=== PATIENT | male | born 1965 | race Caucasian/White ===

== ENCOUNTER 2018-09-14 08:49 | Emergency (ER) | payer BC, SELFPAY ==
[2018-09-14 08:54] VITALS: BP 146/104; PULSE 86; RESP 14; TEMP 37.4; O2SAT 96
--- NOTE | 2018-09-14 09:23 | ED.GENADUL_ITS ---
Discharge Plan Disposition Patient Disposition: HOME Condition: Good Discharge Details Chief Complaint: RespSymp Clinical Impression: Cough, Bronchitis Primary Care Provider: Maria Luisa Middleton ED Provider: Rogelio Hicks Home Meds and New Rx's Prescriptions: New benzonatate [Tessalon Perles] 100 mg capsule 100 mg PO BID PRN (Reason: cough) Qty: 20 RF: 0 doxycycline hyclate 100 mg capsule 100 mg PO BID Qty: 14 RF: 0 albuterol sulfate 90 mcg/actuation HFA aerosol inhaler 1 puff IH Q6H PRN (Reason: bronchospasm) Qty: 6.7 RF: 0 No Action lisinopril 5 MG tablet 5 mg PO DAILY RF: 0 buspirone 15 MG tablet 15 mg PO BID RF: 0 tadalafil [Cialis] 5 MG tablet 5 mg PO DAILY RF: 0 hydrochlorothiazide 12.5 MG tablet 12.5 mg PO DAILY RF: 0 vitamin E 400 UNIT capsule 400 unit PO DAILY RF: 0 omega-3 fatty acids-fish oil [Fish Oil] 1 EACH capsule 1 ea PO BID RF: 0 Vitamin B3 1 tab PO DAILY RF: 0 loratadine 10 MG tablet 10 mg PO DAILY RF: 0 Discharge Instructions Instructions: Acute Bronchitis (ED), Acute Cough (ED) Additional Instructions: Please take the medication as directed. Please do not take the doxycycline for the next 48-72 hours. Only take the antibiotic if you do not no improvement of your symptoms in the next 48 hours. If you notice any worsening of your symptoms, or any new symptoms such as vomiting, diarrhea, fever, chills, shortness of breath, chest pain, numbness, weakness, or fainting , please return immediately to the emergency department for reevaluation. Please follow up with your primary care provider as soon as possible for reassessment and reevaluation. As always, it was a pleasure participating in your medical care today. Referrals: Maria Luisa Middleton [Primary Care Provider] - Discharge Data Discharge Date/Time-TO BE ENTERED AT DEPARTURE: 09/14/18 09:39 Medical Decision Making This is a pleasant 53-year-old male who presents with 4 days of cough, with productive brown sputum. Physical exam demonstrates no evidence of hypoxemia, fever, or tachycardia. No evidence of sepsis, or significant respiratory distress. Minimal crackles in the bases. Patient's risk factors for pneumonia severity are low, he is not a candidate for inpatient admission. I feel symptoms are consistent with mild to moderate bronchitis, however with mild crackles he community-acquired pneumonia certainly on the differential however less. With no other significant concerning physical exam findings and reassuring vital signs I feel that the patient be safely discharged home. We will start treatment for bronchitis with albuterol, and Tessalon Perles, and recommended 2 tablespoons of honey every 6 hours for cough suppression. However out of an abundance of precaution did recommend that the patient continue to monitor his symptoms and if he has no improvement of her symptoms, or if he develops recurrent fever, worsening of his cough, they begin taking doxycycline for potential community acquired pneumonia. We discussed red flags which to return, the importance of close PCP follow-up, and the patient understands. I have extensively reviewed the treatment plan and discharge instructions with the patient. I have addressed all patient concerns at this time. The patient was made aware of what symptoms to monitor for that would warrant a return to the emergency department. Discussed the plan with the patient, they demonstrate verbal understanding and agreement with our assessment and plan at this time. HPI General Date/Time Provider Initiated Documentation: 09/14/18 09:14 . HPI Narrative: This is a 53-year-old male with a past medical history of high cholesterol and hypertension no history of tobacco abuse, who presents today with cough for the last 4 days with mild amounts of brown productive sputum. He denies any significant fever or chills. He does admit to similar sickness going around for his coworkers. He denies any chest pain, shortness of breath, pleuritic chest pain, arm neck or shoulder pain. He denies any history of cardiac disease or significant family history of cardiac disease. He denies any nausea, vomiting or diarrhea. Denies PE risk factors such as recent long car rides, immobilization, recent surgery, prior history of DVT or PE, family history of PE or DVT, morbid obesity, exogenous estrogen and smoking, hemoptysis, history of cancer. Of note the patient states that his cough is been the most complicating component, and he has been coughing all night, this had no improvement with [id number] therapies. Related Data Home Medications Medication Instructions Recorded Confirmed buspirone 15 mg PO BID 09/30/12 09/14/18 lisinopril 5 mg PO DAILY 09/30/12 09/14/18 tadalafil [Cialis] 5 mg PO DAILY 09/30/12 09/14/18 Vitamin B3 1 tab PO DAILY 02/24/17 09/14/18 hydrochlorothiazide 12.5 mg PO DAILY 02/24/17 09/14/18 loratadine 10 mg PO DAILY 02/24/17 09/14/18 omega-3 fatty acids-fish oil [Fish 1 ea PO BID 02/24/17 09/14/18 Oil] vitamin E 400 unit PO DAILY 02/24/17 09/14/18 albuterol sulfate 1 puff IH Q6H PRN #6.7 gm 09/14/18 benzonatate [Tessalon Perles] 100 mg PO BID PRN #20 cap 09/14/18 doxycycline hyclate 100 mg PO BID #14 cap 09/14/18 Previous Rx's Medication Instructions Recorded albuterol sulfate 1 puff IH Q6H PRN #6.7 gm 09/14/18 benzonatate [Tessalon Perles] 100 mg PO BID PRN #20 cap 09/14/18 doxycycline hyclate 100 mg PO BID #14 cap 09/14/18 Allergies Allergy/AdvReac Type Severity Reaction Status Date / Time rosuvastatin [From Crestor] Allergy Intermediate Skin Rash Unverified 09/14/18 08:57 amlodipine AdvReac Intermediate angina Unverified 09/14/18 08:57 atorvastatin AdvReac Intermediate vomiting Unverified 09/14/18 08:57 morphine AdvReac Intermediate Nausea Unverified 09/14/18 08:57 codeine [Codeine] AdvReac Mild Nausea Unverified 09/14/18 08:57 General Stated Complaint: RespSymp VON: 3 Review of Systems Review of Systems All systems reviewed & are unremarkable except as noted in HPI and below PFSH Medical History Anxiety Bloody stools Diverticular disease of colon Family history of colon cancer Hearing loss Hyperlipidemia Hypertension Irritability Muscle pain Plantar fasciitis Skin rash Surgical History Colonoscopy - MAC (02/26/17) Family History Mother Colon cancer Grandfather Colon cancer Social History Smoking/Tobacco Use Status: Never Alcohol Intake: never Drug use: Never Substance use type: does not use Do you feel safe at home: Yes Do you feel safe in your relationship?: Yes Exam Narrative Exam Narrative: 1.Const: Well-nourished, Well-developed, appearing stated age 2.Eyes: PERRL, no conjunctival injection, and symmetrical lids. 3.ENT: Atraumatic external nose and ears. Moist MM. Neck: Symmetric, trachea midline, No thyromegaly. 4.CVS: +S1/S2, No murmurs or gallops. Peripheral pulses 2+ and equal in all extremities. Brisk capillary refill in all extremities. 5.RESP: Unlabored respiratory effort. Minimal crackles in the bases, otherwise clear to auscultation bilaterally. No wheezes or rhonchi 6.GI: Soft, Nontender/Nondistended, No hepatosplenomegaly. No guarding or rebound. 7.MSK: Normocephalic/Atraumatic, Extremities w/o deformity or ttp No cyanosis or clubbing, Normal movement of all extremities 8.Skin: Warm, Dry. No rashes or lesions. 9.Neuro: manufacturing planner II-XII grossly intact. Sensation grossly intact, no focal neurologic deficits. 10.Psych: (AAO) x3. Appropriate mood and affect Course Vital Signs Temperature 37.4 C 09/14/18 08:54 Pulse 86 09/14/18 08:54 Respiratory Rate 14 09/14/18 08:54 Blood Pressure 146/104 H 09/14/18 08:54 Pulse Oximetry 96 09/14/18 08:54 Temperature 37.4 C 09/14/18 08:54 Temperature Source Temporal Artery Scan 09/14/18 08:54 Pulse 86 09/14/18 08:54 Respiratory Rate 14 09/14/18 08:54 Respiratory Effort 09/14/18 09:14 Respiratory Depth Normal 09/14/18 09:14 Blood Pressure 146/104 H 09/14/18 08:54 Blood Pressure Position Sitting 09/14/18 08:54 Pulse Oximetry 96 09/14/18 08:54 Oxygen Delivery Method Room Air 09/14/18 08:54 Oxygen Flow Rate 0 09/14/18 08:54 Pain Level 6 09/14/18 08:54
[2018-09-14 09:24] VITALS: BP 134/92; PULSE 84; RESP 18; TEMP 37.2; O2SAT 97
== END 2018-09-14 09:39 | disposition home or self-care (01) ==
PROVIDERS: Emergency Provider Student in an Organized Health Care Education/Training Program; PCP Nurse Practitioner
DX: J20.9 Acute bronchitis, unspecified (principal); I10 Essential (primary) hypertension
CPT/HCPCS: 99283

== ENCOUNTER 2018-11-19 08:58 | Outpatient (CLI) | payer BC, SELFPAY ==
[2018-11-19 11:33] LABS: ALT 38 U/L (12-78); AST 21 U/L (15-37); Albumin 4.1 g/dL (3.4-5.0); Alkaline Phosphatase 41 U/L (46-116); Anion Gap 9.3 mmol/L (3-11); BUN 19 mg/dL (7-18); Bilirubin, Total 0.8 mg/dL (0.2-1.0); CO2 27.7 mmol/L (21.0-32.0); CREATININE 1.09 mg/dL (0.70-1.30); Calcium 9.3 mg/dL (8.5-10.1); Chloride 101 mmol/L (98-107); Cholesterol 192 mg/dL (50-200); Glucose 96 mg/dL (70-100); HDL Cholesterol 35 mg/dL (40-60); LDL CHOLESTEROL 129 mg/dL (<100); Potassium 4.1 mmol/L (3.5-5.1); Sodium 138 mmol/L (136-145); Triglyceride 153 mg/dL (30-150)
== END 2018-11-19 09:18 ==
PROVIDERS: PCP Nurse Practitioner; Visit Provider Nurse Practitioner
DX: E78.5 Hyperlipidemia, unspecified (principal); I10 Essential (primary) hypertension
CPT/HCPCS: 36415; 80053; 80061; 83721

== ENCOUNTER 2019-11-11 18:54 | Emergency (ER) | payer BC, SELFPAY ==
[2019-11-11 18:59] VITALS: BP 161/103; PULSE 87; RESP 18; TEMP 36.6; O2SAT 97
--- NOTE | 2019-11-11 19:05 | W.ED.GENAD ---
Discharge Plan Disposition Patient Disposition: HOME Condition: Stable Discharge Details Chief Complaint: Sorethroat Clinical Impression: Exudative pharyngitis Primary Care Provider: Maria Luisa Middleton ED Provider: Andrews Bowling Home Meds and New Rx's Prescriptions: New penicillin V potassium 500 mg tablet 500 mg PO TID 10 Days Qty: 30 RF: 0 Continued pravastatin 20 mg tablet 20 mg PO DAILY RF: 0 coenzyme Q10 [Co Q-10] 100 mg capsule 100 mg PO DAILY RF: 0 apple cider vinegar 600 mg capsule PO DAILY RF: 0 garlic 1,000 mg capsule 1,000 mg PO QPC RF: 0 arginine (L-arginine) 500 mg capsule PO RF: 0 lisinopril 5 MG tablet 5 mg PO DAILY RF: 0 buspirone 15 MG tablet 15 mg PO BID RF: 0 tadalafil [Cialis] 5 MG tablet 5 mg PO DAILY RF: 0 hydrochlorothiazide 12.5 MG tablet 12.5 mg PO DAILY RF: 0 vitamin E 400 UNIT capsule 400 unit PO DAILY RF: 0 Fish Oil 1 EACH capsule 1 ea PO BID RF: 0 Vitamin B3 1 tab PO DAILY RF: 0 albuterol sulfate 90 mcg/actuation HFA aerosol inhaler 1 puff IH Q6H PRN (Reason: bronchospasm) Qty: 6.7 RF: 0 Discharge Instructions Instructions: Pharyngitis (ED) Additional Instructions: Small, frequent sips of fluids to maintain hydration. May use Tylenol and/or ibuprofen as needed for pain. May benefit from cool drinks or a popsicle. Please take penicillin as prescribed. Return if develop a worsening sore throat, difficulty swallowing or breathing, or any other acute concern. Medical Decision Making This is a 54-year-old male who presents from home with 2 days of sore throat that is been isolated and without associated fever, cough, shortness of breath. He states he has a history of strep throat in the past. He is an otherwise healthy man. Slightly hypertensive but afebrile. He does have a known history of hypertension. His exam shows a erythematous oropharynx consistent with exudative pharyngitis. Rapid strep test was obtained and negative, however given the patient's presentation and clear exudative pharyngitis we will begin treatment with a course of penicillin pending final culture result. Patient understands plan of care. HPI General Mode of arrival: ambulatory. Date/Time Provider Initiated Documentation: 11/11/19 18:54. Limitations to Documentation: no limitations. Information obtained by: patient. History of Present Illness 54 year old M presents to the emergency department with the chief complaint of Sore throat for 2 days, described as moderate, Quality is described as dull, and is localized to the mouth. Patient reports no radiation. Patient started experiencing this day(s) and it has been constant. No relieving factors improve symptom(s), No exacerbating factors reported . Patient notes denies cough and shortness of breath. Related Data Home Medications Medication Instructions Recorded Confirmed buspirone 15 mg PO BID 09/30/12 11/11/19 lisinopril 5 mg PO DAILY 09/30/12 11/11/19 tadalafil [Cialis] 5 mg PO DAILY 09/30/12 11/11/19 Fish Oil 1 ea PO BID 02/24/17 11/11/19 Vitamin B3 1 tab PO DAILY 02/24/17 11/11/19 hydrochlorothiazide 12.5 mg PO DAILY 02/24/17 11/11/19 vitamin E 400 unit PO DAILY 02/24/17 11/11/19 albuterol sulfate 1 puff IH Q6H PRN #6.7 gm 09/14/18 11/11/19 apple cider vinegar 600 mg capsule mg PO DAILY cap 02/06/19 03/02/19 arginine (L-arginine) 500 mg mg PO 02/06/19 03/02/19 capsule coenzyme Q10 100 mg capsule 100 mg PO DAILY 02/06/19 11/11/19 garlic 1,000 mg capsule 1,000 mg PO QPC 02/06/19 11/11/19 pravastatin 20 mg tablet 20 mg PO DAILY 02/06/19 11/11/19 penicillin V potassium 500 mg PO TID 10 Days #30 tab 11/11/19 Previous Rx's Medication Instructions Recorded albuterol sulfate 1 puff IH Q6H PRN #6.7 gm 09/14/18 penicillin V potassium 500 mg PO TID 10 Days #30 tab 11/11/19 Allergies Allergy/AdvReac Type Severity Reaction Status Date / Time rosuvastatin [From Crestor] Allergy Intermediate Skin Rash Unverified 11/11/19 19:02 amlodipine AdvReac Intermediate angina Unverified 11/11/19 19:02 atorvastatin AdvReac Intermediate vomiting Unverified 11/11/19 19:02 morphine AdvReac Intermediate Nausea Unverified 11/11/19 19:02 codeine [Codeine] AdvReac Mild Nausea Unverified 11/11/19 19:02 General Stated Complaint: Sorethroat VON: 4 Review of Systems Narrative: Denies cough, shortness of breath, known sick contacts or recent travel. [facility] Medical History Anxiety Bloody stools Diverticular disease of colon Family history of colon cancer Hearing loss Hyperlipidemia Hypertension Irritability Muscle pain Plantar fasciitis Skin rash Surgical History (Updated 03/11/17 @ 09:35 by Adwoa Nunez) Colonoscopy - MAC (02/26/17) Family History Mother Colon cancer Grandfather Colon cancer Social History Smoking/Tobacco Use Status: Never Alcohol Intake: never Drug use: Never Substance use type: does not use Do you feel safe at home: Yes Do you feel safe in your relationship?: Yes Exam Narrative Exam Narrative: GEN: awake, alert, oriented 3. Pleasant, well groomed, interactive. HEAD: Normocephalic, atraumatic ENT: Mucous membranes moist, oropharynx with erythematous tonsillar pillars with overlying scant white exudate, the uvula is midline, there is no asymmetry, tympanic membranes are clear bilaterally, External ear exam unremarkable EYES: PERRL, EOMI NECK: Full ROM, no SHANTAL, no menigismus CHEST/RESP: Nontender, clear to auscultation bilateral, no wheeze/rhonchi/rales CARDIOVASCULAR: RRR, no murmur, rub axel. 2+ Rad pulse bilateral Neuro: Grossly normal neurologic exam, conversant, interactive. Psych: Speech fluent, thoughts congruent, affect normal Course Vital Signs Vital signs: Vital Signs Temperature 36.6 C 11/11/19 18:59 Pulse 87 11/11/19 18:59 Respiratory Rate 18 11/11/19 18:59 Blood Pressure 161/103 H 11/11/19 18:59 Pulse Oximetry 97 11/11/19 18:59 Temperature 36.6 C 11/11/19 18:59 Temperature Source Skin 11/11/19 18:59 Pulse 87 11/11/19 18:59 Respiratory Rate 18 11/11/19 18:59 Respiratory Effort Non-Labored 11/11/19 19:01 Blood Pressure 161/103 H 11/11/19 18:59 Blood Pressure Position Sitting 11/11/19 18:59 Pulse Oximetry 97 11/11/19 18:59 Oxygen Delivery Method Room Air 11/11/19 18:59 Oxygen Flow Rate 0 11/11/19 18:59 Pain Level 5 11/11/19 18:59
[2019-11-11 19:22] VITALS: BP 163/101; PULSE 87; RESP 18; TEMP 36.6; O2SAT 97
[2019-11-11] MEDS: Penicillin V POTASSIUM 500 MG TAB, 4 TABS/BTL PO (19:24)
== END 2019-11-11 19:30 | disposition home or self-care (01) ==
PROVIDERS: Emergency Provider Emergency Medicine; PCP Nurse Practitioner
DX: J02.9 Acute pharyngitis, unspecified (principal); I10 Essential (primary) hypertension
CPT/HCPCS: 87880; 99283; 87070; 87081

== ENCOUNTER 2019-11-21 07:46 | Outpatient (REF) | payer BC, SELFPAY ==
[2019-11-21 15:43] LABS: ALT 49 U/L (16-63); AST 24 U/L (15-37); Albumin 4.3 g/dL (3.4-5.0); Alkaline Phosphatase 52 U/L (46-116); Anion Gap 8.2 mmol/L (3-11); BUN 17 mg/dL (7-18); Bilirubin, Total 0.4 mg/dL (0.2-1.0); CO2 28.8 mmol/L (21.0-32.0); CREATININE 1.16 mg/dL (0.70-1.30); Calcium 10.2 mg/dL (8.5-10.1); Calculated LDL 118 mg/dL (<100); Chloride 102 mmol/L (98-107); Cholesterol 197 mg/dL (<200); Glucose 94 mg/dL (74-106); HDL Cholesterol 40 mg/dL (40-60); Potassium 4.3 mmol/L (3.5-5.1); Sodium 139 mmol/L (136-145); Total Protein 7.4 g/dL (6.4-8.2); Triglyceride 196 mg/dL (<150)
== END 2019-11-21 08:06 ==
LOC: NCHCN 07:46
PROVIDERS: PCP Nurse Practitioner; Visit Provider Nurse Practitioner
DX: E78.5 Hyperlipidemia, unspecified (principal); I10 Essential (primary) hypertension
CPT/HCPCS: 80053; 80061

== ENCOUNTER 2020-03-27 11:06 | Outpatient (REF) | payer BC, SELFPAY ==
[2020-03-27 12:08] LABS: HCT 47.9 % (40.0-50.0); HGB 16.8 g/dL (13.5-17.5); MCH 32.7 pg (27.0-33.0); MCHC 35.1 % (32.0-36.0); MCV 93.2 fL (80-95); MPV 9.7 fL (8.0-11.0); Platelet Count 272 10^3/uL (130-400); RBC 5.14 10^6/uL (4.36-5.78); RDW 11.9 % (11.8-14.1); RDW-SD 41.1 fL; WBC 7.16 10^3/uL (4.4-10.8)
== END 2020-03-27 11:26 ==
LOC: LBN 11:06
PROVIDERS: PCP Nurse Practitioner; Visit Provider Surgery
DX: K62.5 Hemorrhage of anus and rectum (principal); K64.4 Residual hemorrhoidal skin tags
CPT/HCPCS: 85027

== ENCOUNTER 2020-04-01 07:56 | Day surgery (SDC) | payer BC, SELFPAY ==
[2020-04-01 08:00] VITALS: BP 144/96; PULSE 83; RESP 16; TEMP 36.4; O2SAT 99
[2020-04-01] MEDS: Lactated Ringers 1,000 ML 80 ML IV (08:27)
--- NOTE | 2020-04-01 10:44 | W.COLOREPORT ---
Date of service: 04/01/20 Time of Service: 10:44 Colonoscopy Report Date of procedure: 04/01/20 Pre-op diagnosis general: BRBPR Post-op diagnosis procedure note: other (diveritulc/hemorrhoids ) Surgeon: Sherrie Singh Anesthesia proc note operative: GETA Estimated blood loss (mL): 0 Pathology: none sent Complications: None Disposition: same day Prep: Miralax/Dulcolax Retraction Time: 10 Procedure Description: After informed consent was obtained the patient was taken to the procedure room and placed in a left decubitous position. Monitors were applied and a time out was done. The patients name, date of , procedure, allergies to medications and metal in their body was reviewed. The patient was then sedated. Once sedated and comfortable a rectal exam was done. External exam was normal. Internal exam revealed a normal sphincter tone and no palpable masses. The prostate nl. The scope was then introduced and retrofelexed. Grade III internal hemorrhoids - all three columns were identified (3,7,11 oclock). The scope was then advanced to the cecum w/ out difficulty. The TI and appendiceal orifice were identified. The prep was good. The scope was then slowly retracted over 10 minutes back into the rectum. He does have a very few, very small diverticula confined to the sigmoid colon. There is no signs of bleeding or infection. No polyp/AVM's. The scope was removed and the patient was woken up and taken back to Same day surgery in stable condition. Patient does have internal hemorrhoids and x3 columns as mentioned. These were banded today. There is no bleeding noted. The patient tolerated the procedure well and there were no immediate complications. Follow up: The patient should follow up in 10 years unless they develop changes in bowel habits or other new gastrointestinal complaints. Start on a fiber product and stopping straining to move bowels.
--- NOTE | 2020-04-01 10:46 | W.PM.DSUDISC ---
Discharge Plan Disposition Patient Disposition: HOME Condition: Good Discharge Details Reason For Visit: RECTAL BLEEDING Attending Provider: Sherrie Singh Primary Care Provider: Maria Luisa Middleton Home Meds and New Rx's Prescriptions: Discontinued docusate sodium 100 mg capsule 100 mg PO DAILY RF: 0 polyethylene glycol 3350 [Miralax] 17 gram/dose powder 17 g PO DAILY RF: 0 vitamin E 400 UNIT capsule 400 unit PO DAILY RF: 0 Fish Oil 1 EACH capsule 1 ea PO BID RF: 0 No Action pravastatin 20 mg tablet 20 mg PO DAILY RF: 0 coenzyme Q10 [Co Q-10] 100 mg capsule 100 mg PO DAILY RF: 0 apple cider vinegar 600 mg capsule 600 mg PO DAILY RF: 0 buspirone 30 mg tablet 30 mg PO BID RF: 0 tadalafil [Cialis] 5 mg tablet 5 mg PO PRN RF: 0 vitamin B complex [B Complex-Vitamin B12] Tablet 1 tab PO DAILY RF: 0 saw palmto frt xtr-zinc picoli 160-15 mg capsule 1 cap PO DAILY RF: 0 mullein 580 mg capsule 2 cap PO DAILY RF: 0 lisinopril 5 MG tablet 5 mg PO DAILY RF: 0 hydrochlorothiazide 12.5 MG tablet 12.5 mg PO DAILY RF: 0 albuterol sulfate 90 mcg/actuation HFA aerosol inhaler 1 puff IH Q6H PRN (Reason: bronchospasm) Qty: 6.7 RF: 0 Discharge Instructions Additional Instructions: Findings:minor diverticula hemorrhoids bands will fall off in 3-5 days no ASA/NSAID's/vit E/fish oil/alcohol/anti-coagulants x10 days. Follow up: repeat in 10 yrs time Please call if you develop: fevers >101.5 Nausea or Vomiting Abdominal pain that is not transient DAY SURGERY UNIT POST COLONOSCOPY INSTRUCTIONS 1. Because there will be medication in your system for the next 24 hours, you may feel a little sleepy. Your coordination will be affected. Therefore: a. Do not drive or operate dangerous equipment for 24 hours. b. Do not drink alcohol beverages for 24 hours (not even beer). c. Plan to go home and rest for the day. 2. Generally there are no restrictions on your activity after a day or so has gone by, but you may feel a bit fatigued for a few days. 3 After you arrive home you may have a light meal and return to a normal diet as you can tolerate it without feeling sick to your stomach. 4. After surgery, you may feel pain or discomfort. This should be only transient, but if it persists please contact your doctor. 5. If there are any questions regarding the findings of your procedure, please feel free to contact your doctor. 6. If you are unable to contact your doctor with a problem, contact the hospital at [phone]. 7. Continue all your regular medications unless directed otherwise. I understand the above instructions and have no questions. Signature of Patient or Responsible Adult Escort Date/Time Name of Responsible Adult Escort Signature of Nurse Date/Time Pain Relief From Hemorrhoids Hemorrhoid banding itself is not painful, but it is normal for patients to experience a sense of fullness or pressure after the procedure. Tylenol or Ibuprofen usually alleviates any symptoms. Post-Procedure Do's & Don'ts Do?s: ? Take fiber supplements to avoid constipation ? Squeeze your buttocks muscles 10-15 times every two hours ? Take 10-15 deep breaths every 1-2 hours ? Drink plenty of water ? Engage in moderate exercise ? Take a sitz bath ? soaking in a tub of warm water ? after every bowel movement Don?ts: ? Stay seated for more than 2-3 hours ? Rub or scrub the anus too vigorously ? Try to force a bowel movement ? if you cannot go, stop and try again later ? Insert anything into the anus for two weeks ? unless you have been prescribed anorectal medication ? Avoid alcohol, as it can dehydrate you and lead to constipation Occasionally, you may experience bleeding after the hemorrhoid banding procedure. Do not be concerned if there is a minimal amount of blood. However, if bleeding continues, lie flat with your bottom higher than your head and apply an ice pack to the area. If the bleeding does not stop within a half-hour, call our office or go to the emergency room. Bleeding complications are uncommon and occur <1% of the time. Additional Tips ? To avoid constipation, take two tablespoons of natural wheat bran, natural oat bran, flax, Benefiber or any over the counter fiber supplement with 7-8 glasses of water. High Fiber Diet What is Dietary Fiber? All fiber comes from plants, bushes, meet or trees. Of course, the ones that we eat provide us with fruits, vegetables and grains. There are many different types of fiber but the three that are most important to the health of the body are: Insoluble Fiber This fiber does not dissolve in water, nor is it fermented by the bacteria residing in the colon. Rather, it retains water and in so doing, helps to promote a larger, bulkier and more regular bowel activity. This, in turn, may be important in preventing disorder such as diverticulosis and hemorrhoids, and in sweeping out certain toxins and cancer causing carcinogens. Sources of insoluble fiber are: ? whole grain wheat and other whole grains ? corn bran, including popcorn, unflavored and unsweetened ? nuts and seeds ? potatoes and the skins from most fruits from trees such as apples, bananas and avocados ? many green vegetables such as green beans, zucchini, celery and cauliflower ? some fruit plants such as tomatoes and kiwi Soluble Fiber These fibers are fermented or used by the colon bacteria as a food source or nourishment. When these good bacteria grow and thrive, many health benefits occur in both the colon and the body. Soluble fiber is present in some degree in most edible plant foods, but the ones with the most soluble fiber include: ? legumes such as peas and most beans, including soybeans ? oats, rye and barley ? many fruits such as berries, plums, apples bananas and pears ? certain vegetables such as broccoli and carrots ? most root vegetables ? psyllium husk supplement products Prebiotic Soluble Fiber These are relatively newly discovered soluble plant fibers. The technical name for this fiber is inulin or fructan. When these soluble fibers are fermented by the good colon bacteria, some further significant health benefits have been shown to occur by research in many medical centers. These soluble prebiotic fibers occur in significant amounts in: ? asparagus ? yams ? onions ? garlic ? bananas ? leeks ? agave ? chicory and other root vegetables such as [place] artichokes ? wheat, rye and barley (smaller amounts) Benefits of a High Fiber Diet The health benefits of a high fiber diet, consumed on a regular basis and reaching recommended amounts (below), are now fairly well-defined. There are some additional benefits in the early research stage with the prebiotic soluble fibers. What is now known regarding a high fiber diet include: Bowel Regularity A high fiber diet promotes regularity with a softer, bulkier and regular stool pattern. This decreases the chance of hemorrhoids, diverticulosis and perhaps colon cancer. Cholesterol and Reduced Triglycerides The soluble fibers are the ones that will reduce cholesterol levels when used on a regular basis. Psyllium husk and prebiotic soluble fiber will also reduce cholesterol. They may also reduce the incidence of coronary heart disease. Oats, flax seeds and legumes or beans are the recommended fibers. Colon Polyps and Cancer It is still not certain if a high fiber diet helps prevent colon cancer. Considerable research suggests that this may occur. Certainly it makes sense to increase regularity and so speed the movement of cancer causing carcinogens through the bowel. In addition, reducing a heavy meat diet reduces the bile flow from the liver in a favorable way. This, too, reduces the amount of carcinogens that reach and are manufactured in the colon. Finally, a high fiber diet, including prebiotic soluble fiber, increases the integrity and health of the wall of the colon. The risk of cancer may be reduced. Colon Wall Integrity A high fiber diet changes the bacterial makeup of the colon toward a more favorable balance. For instance, it is known that those people with obesity, diabetes type 2 and inflammatory bowel disease have a predominance of bad bacteria in the colon. This, in turn, may render the bowel wall weak and allow bacteria and, indeed, even toxins to seep through. A high fiber diet with a modest reduction in animal and meat products may return the bacterial makeup to a more positive balance. This, in particular, has been seen when the soluble fiber prebiotics are added to the diet. Blood Sugar Soluble fiber such as in legumes (beans), oats and in prebiotic fibers slows the absorption of blood sugar and so helps regulate the sugar in the blood. Insoluble fiber on a regular basis is associated with reduced risk of type 2 diabetes. Weight Loss High fiber diets are more filling and give a sense of fullness sooner than an animal and meat based diet does. In addition, the soluble prebiotic fibers have been shown to turn off the hunger hormones produced in the wall of the gut and to increase the hormones that give a sense of fullness. Those hormones are made in the wall of the gut. New medical research has shown that the bacterial makeup in the colon in overweight people is abnormal to the extent that they manufacture and absorb almost twice the number of calories through the colon wall as do normals. Prebiotic fibers (below) will help change this hormonal balancein a favorable way. Bacteria and the Function of the Colon The colon finishes the digestive process. Hopefully, the waste products move through in a nice regular manner. Insoluble fibers help this process by retaining water and so producing a bulkier, softer stool, which is easy to pass. The additional role of the colon is to provide a home for an enormous number of micro-organisms, mostly bacteria. Recent research has shown that there are over 1,000 species of bacteria with a total bacterial count ten times the number of cells in the body. These bacteria play a major role in keeping the colon wall itself healthy. In addition, these good bacteria produce a very strong immune system for the body. They significantly increase calcium absorption and bone density. They provide other documented benefits. It is the soluble fibers in the diet that are so effective in stimulating the growth of good colon bacteria. How Much is Enough? The amount of fiber in food is measured in grams. National nutritional authorities recommend the following amounts of dietary fiber daily. Under Age 50 Over Age 50 Men 38 grams 30 grams Women 25 grams 21 grams For a week or so, it is best to tally the amount of fiber you are consuming. Boxed and packaged foods will have the amount of fiber per serving on the nutrition label. Which Fibers and Which Foods are Best? As noted, healthy fiber is only found in plants. The three major categories are whole grains, fruits and vegetables. Whole Grains Wheat, oats, barley, wild or brown rice, amaranth, buckwheat, bulgur, corn, millet, quinoa, rye, sorghum, teff and triticals. By far, wheat, oats and wild or brown rice are most common. Always buy whole grain products. White bread, baked goods and rolls almost always are made from wheat flour. Wheat flour is white because most of the fiber, vitamins and other nutrients have been removed. Try not buy enriched grains. What this means is that simple white flour has had vitamins added to it by the mill turner. The word, enriched, implies a good and healthy product. On the contrary, enriched means that most of the fiber has been removed and a few vitamins added. Fruits Fruits come from trees such as apple and pear or from bushes or meet. You should eat a wide variety of fruits, preferably with every meal. In many cases, the skin of a fruit such as apple will contain much of the insoluble fiber while the pulp contains most of the soluble fiber. To the extent possible, buy organic fruits as these will have little or no pesticides. Always wash fruit. Vegetables Eat a wide variety of vegetables. They should be a mainstay of lunch and dinners. Frozen vegetables retain as much nutrition and fiber as fresh vegetables. As with fruit, try to buy organic to reduce any residual pesticide ingestion. Wash fresh vegetables thoroughly. Cruciferous vegetables such as broccoli, [place] sprouts and cauliflower contain certain chemicals such as sulforaphane. This substance has very strong anti-cancer properties and should be eaten frequently. Legumes, Beans, Peas and Soybeans These vegetables have plenty of soluble fiber and should be part of a varied vegetable intake. Beans, in particular, contain a certain type of fiber that may lead to harmless gas or bloating. Nuts and Seeds These are rich sources of fiber and are a good substitute for sweets such as candies and baked sweet goods. While nuts and seeds are rich in fiber, they also contain vegetable fat and so can and do add calories. Read the Labels As noted, fresh and frozen foods are usually better. They have good nutrition and few, if any, chemicals added to them. When buying packaged foods and, in particular grains, look for three things: ? The first word on the label should be whole, such as whole wheat or whole grain. ? Check out the calories and the amount of fiber in a serving. ? How many and what other additives or chemicals are added. Fewer is always better. Do you know what each additive does? Some are added not for the benefit of the cow buyer but rather for manufacturers. These could and do include sugar, artificial flavor, chemicals to prevent oxidation and spoilage, emulsifiers to blend the product. You have to be a fugitive detective. Fiber Facts, Nuggets and Pearls ? For breakfast you can easily get the day started well by using a high fiber, whole grain cereal. Check the labels. Add fruit such as blueberries and bananas. If you are an egg eater, use whole wheat or grain toast. Adding wheat germ gives you a good fiber kick. ? Always use whole grain or wheat with rolls and sandwiches. Does your fast food store not have them? Perhaps you look elsewhere. Eating an occasional black harris or veggie burger provides variety. ? Snacks should consist of fruit and/or nuts. While nuts are loaded with fiber, they are an energy rich food, meaning they have a lot of calories in a small packet. ? Fruit juices should contain pulp. Clear juices such as clear orange, pear or apple juice contain little fiber and have a lot of fructose. Prune juice is usually high in fiber. ? Homemade soups ? adding fresh or frozen vegetables to a chicken or vegetable stock is a good way to start homemade soup. ? Salads ? adding cooked and then chilled vegetables provide great flavoring to almost any salad. Remember, a gray salad has lots of cooked corn in it. Small slices of apples or oranges and nuts such as chopped walnuts or sliced almonds always adds taste, variety and fiber to almost any salad. ? Fruit ? Try to eat fruit of some type with almost every meal. ? Rethink how you place the various foods on your dinner plate. Reducing the portions of the meat or animal food portion to the side with equal or more portions of vegetables, legumes and fruits portion always allows for more fiber. There was never anything magic about making the meat or animal food portion the main part of the dinner plate. Eating from smaller plates can, over time, trick your mind and moth exterminator habit of using a dinner plate. Again, there is nothing magic in an 11, 12, or 13 inch dinner plate. Fiber Supplements There are a variety of fiber supplements available on the food or pharmacy shelves. Psyllium This soluble plant fiber has been used in [place] for over 2,000 years. It is a soluble fiber with mucilage in it. This acts to retain a lot of water and also is fermented by colon bacteria. When 7 grams a day are used, it does lower cholesterol. Metamucil in various forms is psyllium. Methyl Cellulose All the cellulose products come from finely ground wood chips which are then treated in a variety of ways such as boiling in acids. Methyl cellulose is an insoluble fiber which does dissolve in water. It is also an emulsifier, meaning it blends oils and water. Citrucel is methyl cellulose (MC). MC may not be appropriate for Crohn?s disease or ulcerative colitis as several medical studies have shown that certain emulsifiers dissolve the mucous lining of the colon in animals prone to Crohn?s disease. This then allows bacteria to invade the underlying tissue. Inulin Inulin is a soluble prebiotic fiber found in many foods and which are fermented mostly in the left side of the colon. It is available in a supplement as generic inulin and in Fiber Choice. Oligofructose FOS These are also prebiotic fibers. They are fermented very quickly in the right side of the colon. Prebiotin This product is a combination of oligofructose, which feeds the bacteria in the right side of the colon and inulin, which does the same in the left side of the colon. There seems to be a benefit for this particular formula based on medical research. Prebiotic Soluble Fiber These may be the healthiest of all the soluble fibers. They grow in many plants and have had a great deal of research done on them in the last 10-15 years. These fibers are found in asparagus, yams and other root vegetables such as chicory, garlic, onion, leeks and in smaller amounts in wheat. This research has shown the following: ? Increase in good and decrease in bad colon bacteria ? Increase calcium absorption and enhanced bone mass ? Enhanced immune system ? Appetite and weight control by changing the hormone appetite signals to the brain ? May decrease colon cancer incidence ? Reduce or correct a leaky colon Eating a wide variety of plant food up to the recommended amount will likely give you enough prebiotic fiber. Supplements such as Prebiotin can be added to the diet. Short Chain Fatty Acids (SCFA) Some rather remarkable research findings have shown that one of the benefits of ingesting a lot of soluble fiber, in particular the prebiotic ones, results in larger amounts of SCFAs in the colon. These SCFAs are made by the good bacteria in the colon such as Bifidobacter and Lactobacillus. These small molecules have been shown to do the following: ? Enhance the health and integrity of the colon wall ? Provide nourishment for the cells that actually line the colon ? Increases the acidity of the colon which is a very real health benefit ? Stabilize blood sugar for diabetics ? Reduce blood cholesterol and triglyceride ? Significantly enhance immunity ? May be a benefit for Crohn?s disease and ulcerative colitis patients Fiber and Gas Everyone has intestinal gas and that is a good thing. It means that bacteria, hopefully the good ones, are thriving. The normal amount of flatus passed each day depends on sex and what is eaten. The normal number of flatus is 10-20 times a day. When the bacteria that make intestinal gases are growing, it also means that other good bacteria are using the same fibers to grow and produce multiple health benefits, including the production of healthy short-chain fatty acids. These substances are produced quietly in the colon and produce many health-related outcomes. Soluble fiber should always be used in a gradual manner. If too much is consumed at any one time, then excess, but harmless, intestinal gas can occur. People with irritable bowel syndrome are particularly prone to bloating and mild cramping. In this instance, soluble fiber in the diet or supplement should be used in small doses and increased gradually. Finally, prebiotic fibers tend to cause the production of short-chain fatty acids which acidify the colon. This, in turn, reduces or stops the growth of bacteria that make the smelly hydrogen sulfide gases that produce noxious flatus. People who consume many vegetables with prebiotics or take a prebiotic fiber supplement often have non-odoriferous flatus. Fiber and Irritable Bowel Syndrome Irritable bowel syndrome (IBS) is one of the most common disorders of the lower digestive tract. The symptoms of IBS can be quite varied. They can be a mix of several symptoms such as constipation, diarrhea, crampy abdominal discomfort, bloating and gas. An attack of IBS can be triggered by emotional tension and anxiety, poor dietary habits and certain medications. It is now known that infections in the intestine can lead to long-term IBS symptoms. Increased amounts of fiber in the diet can help relieve the symptoms of irritable bowel syndrome by producing soft, bulky stools. This helps to normalize the time it takes for the stool to pass through the colon. Recent medical research with newer techniques has shown some surprising and dramatic findings for IBS patients. Specifically, there is a very significant and abnormal shift of bacteria from those that provide health benefits to those bad bacteria that we really do not want in the gut. The technical name for this bad group of bacteria is called Firmicutes. Along with this abnormal bacterial collection, there is a smoldering low-grade inflammation in the gut wall that may contribute to symptoms. The goal for IBS patients should be to gradually increase the soluble dietary fibers in the diet so as to promote the growth of good bacteria and so suppress the bad ones along with the associated inflammation. IBS patients need to be careful of the amount of soluble fiber they consume. The reason for this is that, while the good colon bacteria thrive on these fibers and produce health benefits, other gas-forming bacteria may generate excessive but harmless gas and subsequent bloating. Thus, soluble plant fibers or a dietary prebiotic supplement should be taken in small initial doses and then gradually increased to tolerance. Fiber and Colon Polyps/Cancer Colon cancer is a major health problem. This disease is most common in Western cultures. It is not seen very often in rural cultures where the diet is mostly plant based. Usually, colon cancer starts out as a colon polyp, a benign mushroom-shaped growth. In time it grows, and in some people it becomes cancerous. Colon cancer is usually always curable if polyps are removed when found or if surgery is performed at an early stage. It is now known that people can inherit the risk of developing colon cancer, but diet is important, too. As noted, there is a very low rate of colon cancer in residents of countries where grains are unprocessed and retain their fiber. It seems that in the [place] world, cancer-containing agents (carcinogens) remain in contact with the colon wall for a longer time and in higher concentrations. So, a large bulky stool may act to dilute these carcinogens by moving them through the bowel more quickly. Less carcinogenic exposure to the colon may mean fewer colon polyps and less cancer. A very current review of the entire world?s literature on the effect of fiber on colon polyps and cancer prevention has shown rather clearly that for every 10 grams of fiber added to the diet, there is a 10% reduction in incidence of colon cancer. So the recommended 30 gram fiber diet would result in a 30% less chance of getting these tumors. There are also substances produced in the colon by the good bacteria that seem to retard certain pre-cancer factors from developing. They are called short-chain fatty acids (SCFA). See above for description of SCFAs. A high fiber diet increases these substances. So, the combination of dietary fiber and the production of short-chain fatty acids have a clear health benefit. Fiber and Diverticulosis Prolonged, vigorous contraction of the colon over a long period of time may result in diverticulosis. This increased pressure causes small and, eventually, larger ballooning pockets to form. These pockets by themselves cause no problem. However, sometimes they become infected (diverticulitis) or even break open (perforate) causing infection or inflammation within the abdomen (peritonitis). A high fiber diet increases the bulk in the stool and thereby reduces the pressure within the colon. By so doing, the formation of pockets may be reduced or possibly even stopped. In the past, many physicians were fearful that seeds as in tomatoes, nuts or berries were harmful and could get inside these pockets and rattle around, causing damage. We now know that this has never been the case and that these foods contain lots of fiber and are actually beneficial for diverticulosis patients. Certain bulking agents such as psyllium are traditional types of bulk producing supplements. Psyllium is a soluble fiber. Combining it with insoluble fiber as in wheat bran or corn bran (no gluten) can enhance this bulking effect even more. A product containing a prebiotic, psyllium and wheat bran is probably a very good combination for bowel regularity. Prebiotin Regularity/Diverticulosis is one such product. Inflammatory Bowel Disease (IBD) IBD means Crohn?s Disease (CD) or Ulcerative Colitis (UC). CD is an inflammation of the lower small bowel and/or the colon. Bacteria actually invade and cause inflammation in the entire wall of the intestine. UC, on the other hand, is an inflammation just of the lining of the colon. It usually starts in the rectum and left colon and may spread to the entire colon from there. It is now known that in both CD and UC that the bacterial make up is abnormal. This means that there are significantly more of the bad bacteria present than the good ones. These abnormal bacteria are called Firmicutes. Fiber and Crohn?s Disease There is now some information in the medical literature on what type of diet may be harmful and what may help Crohn?s Disease. A reduction in red meat is likely helpful. So is reducing the fat in the diet, including vegetable oils. More importantly, people who had low fiber ingestion in the diet had a greater chance of getting CD. So, a gradual increase in the amount of fiber is likely helpful in hopefully preventing CD. This should always be done in conjunction with the physician. It should be done gradually and should include soluble fibers which fertilize the best colon bacteria. The good bacteria grow and push out the bad ones. These good bacteria provide short chain fatty acids, which can help heal the bowel wall. Prebiotics such as Prebiotin are available. Fiber and Ulcerative Colitis We still do not have strong evidence in the medical literature on what is the best diet for UC. Eating plenty of soluble fiber, including prebiotic fibers will nourish the best colon bacteria. It is hoped that this will result in a decrease in the bad or Firmicutes bacteria. It is well-known that when the good bacteria proliferate that they produce lots of acid substances called short chain fatty acids (SCFA). The SCFAs actually nourish the cells of the colon wall, the very ones that become inflamed in UC. In addition, when the colon contents become acid, the smelly sulfide gases are not produced and the flatus becomes less noxious and may even have no smell at all. This may have a beneficial effect on the inflammation. Prebiotics such as Prebiotin are the best type of soluble fiber. Discharge Orders Discharge Orders: Discharge Order (Routine); Ordered 03/31/20 Ordered By: Sherrie Singh DS: Diagnosis Discharge Diagnosis (1) Hemorrhoids with complication: Status: Acute
[2020-04-01] MEDS: Acetaminophen 500 MG TAB 1000 MG PO (11:11)
[2020-04-01 11:15] VITALS: BP 110/65; PULSE 74; RESP 20; O2SAT 98
[2020-04-01] MEDS: Ketorolac 30 MG/ML VIAL IVP (11:22)
[2020-04-01 12:00] VITALS: BP 112/68; PULSE 72; RESP 20; TEMP 36; O2SAT 98
== END 2020-04-01 16:00 | disposition home or self-care (01) ==
PROVIDERS: PCP Nurse Practitioner; Visit Provider Surgery
PROC: 0DJD8ZZ Inspection of Lower Intestinal Tract, Via Natural or Artificial Opening Endoscopic (ICD-10-PCS; CPT 45378; principal; 2020-04-01 09:30)
DX: K62.5 Hemorrhage of anus and rectum (principal); K64.2 Third degree hemorrhoids
CPT/HCPCS: 45398; J1885; J2001

== ENCOUNTER 2021-04-08 09:16 | Outpatient (REF) | payer BC, SELFPAY ==
[2021-04-08 15:38] LABS: ALT 40 U/L (16-63); AST 20 U/L (15-37); Albumin 4.4 g/dL (3.4-5.0); Alkaline Phosphatase 48 U/L (46-116); Anion Gap 9.5 mmol/L (3-11); BUN 20 mg/dL (7-18); Bilirubin, Total 0.5 mg/dL (0.2-1.0); CO2 28.5 mmol/L (21.0-32.0); CREATININE 1.2 mg/dL (0.70-1.30); Calcium 9.9 mg/dL (8.5-10.1); Calculated LDL 101 mg/dL (<100); Chloride 102 mmol/L (98-107); Cholesterol 190 mg/dL (<200); Glucose 110 mg/dL (74-106); HDL Cholesterol 35 mg/dL (40-60); Potassium 4.3 mmol/L (3.5-5.1); Sodium 140 mmol/L (136-145); Total Protein 7.3 g/dL (6.4-8.2); Triglyceride 274 mg/dL (<150)
== END 2021-04-08 09:17 | disposition home or self-care (01) ==
LOC: NCHCN 09:16
PROVIDERS: PCP Nurse Practitioner; Visit Provider Nurse Practitioner
DX: I10 Essential (primary) hypertension (principal); E78.5 Hyperlipidemia, unspecified
CPT/HCPCS: 80053; 80061

== ENCOUNTER 2021-05-26 09:43 | Emergency (ER) | payer OTHER, SELFPAY ==
[2021-05-26 10:05] VITALS: BP 148/96; PULSE 101; TEMP 36.9; O2SAT 97
--- NOTE | 2021-05-26 10:30 | DI.RAD_ITS ---
Exam(s) XR FINGER LT LITTLE EXAM: XR FINGER LT LITTLE CLINICAL HISTORY: Crush injury. TECHNIQUE: 2D digital imaging was performed. COMPARISON: No exams were available for comparison FINDINGS: There is a 2 x 1 millimeter osteophytic density just dorsal to the head of the middle phalanx of the 5th finger. There is also seen on the lateral view a possible nondisplaced fracture the dorsal base of middle phalanx. There is flexion at the DIP joint. This may reflect extensor tendon injury. Otherwise, there are degenerative changes at the DIP joints of the 2nd-index finger as well as the in terphalangeal joint of the ipsilateral thumb. IMPRESSION: DATA REPOSITORY: RADIATION DOSE DELIVERED:
[2021-05-26] MEDS: Acetaminophen 500 MG TAB (10:31)
[2021-05-26] MEDS: Ibuprofen 600 MG TAB (10:32)
--- NOTE | 2021-05-26 10:48 | ED.GENADUL_ITS ---
Discharge Plan Disposition Patient Disposition: HOME Condition: Stable Discharge Details Clinical Impression: Closed fracture of phalanx of left little finger Primary Care Provider: Maria Luisa Middleton ED Provider: Johanna Zuniga Home Meds and New Rx's Prescriptions: Continued pravastatin 20 mg tablet 20 mg PO DAILY RF: 0 coenzyme Q10 [Co Q-10] 100 mg capsule 100 mg PO DAILY RF: 0 apple cider vinegar 600 mg capsule 600 mg PO DAILY RF: 0 buspirone 30 mg tablet 30 mg PO BID RF: 0 tadalafil [Cialis] 5 mg tablet 5 mg PO PRN RF: 0 vitamin B complex [B Complex-Vitamin B12] Tablet 1 tab PO DAILY RF: 0 saw palmto frt xtr-zinc picoli 160-15 mg capsule 1 cap PO DAILY RF: 0 mullein 580 mg capsule 2 cap PO DAILY RF: 0 lisinopril 5 MG tablet 5 mg PO DAILY RF: 0 hydrochlorothiazide 12.5 MG tablet 12.5 mg PO DAILY RF: 0 albuterol sulfate 90 mcg/actuation HFA aerosol inhaler 1 puff IH Q6H PRN (Reason: bronchospasm) Qty: 6.7 RF: 0 ibuprofen 600 mg tablet 600 mg PO Q6H PRNQty: 60 RF: 3 docusate sodium [Colace] 100 mg capsule 100 mg PO DAILY Qty: 30 RF: 2 Discharge Instructions Instructions: Finger Fracture (ED) Additional Instructions: Wear splint for comfort. You may take it off to shower and bathe. Rest, ice, compression, elevation. Please take Tylenol or Ibuprofen with food every 4-6 hours as needed for pain and swelling. Follow up with primary care provider in 3-5 days. Return to ED sooner if any worsening or concerns. Increase oral fluids. You are placed on a list to follow-up with orthopedic in the next 1 to 2 weeks. You may also call them to make an appointment. Stand Alone Forms: Work Release Referrals: Maria Luisa Middleton [Primary Care Provider] - Danny Estevez MD [ [facility] STAFF PHYSICIAN] - 2 weeks Medical Decision Making 56-year-old male presents to the ER status post a crush injury to his left pinky finger. Patient was at work when he got his left fifth digit crushed between a wrench and a piece of steel. Complaining of distal finger pain and swelling. He was given Tylenol and ibuprofen upon arrival to the ER. And patient was given ice pack. He has a past medical history of diverticular disease, hyperlipidemia, hypertension, anxiety. EXAM: XR FINGER LT LITTLE CLINICAL HISTORY: Crush injury. TECHNIQUE: 2D digital imaging was performed. COMPARISON: No exams were available for comparison FINDINGS: There is a 2 x 1 millimeter osteophytic density just dorsal to the head of the middle phalanx of the 5th finger. There is also seen on the lateral view a possible nondisplaced fracture the dorsal base of middle phalanx. There is flexion at the DIP joint. This may reflect extensor tendon injury. Otherwise, there are degenerative changes at the DIP joints of the 2nd-index finger as well as the interphalangeal joint of the ipsilateral thumb. Discussed x-ray results with patient verbalized understanding. HPI General Mode of arrival: ambulatory . Date/Time Provider Initiated Documentation: 05/26/21 09:57 . Limitations to Documentation: no limitations . Information obtained by: patient and RN notes reviewed . HPI Narrative: 56-year-old male presents to the ER status post a crush injury to his left pinky finger. Patient was at work when he got his left fifth digit crushed between a wrench and a piece of steel. Complaining of distal finger pain and swelling. He was given Tylenol and ibuprofen upon arrival to the ER. And patient was given ice pack. He has a past medical history of diverticular disease, hyperlipidemia, hypertension, anxiety. Related Data Home Medications Medication Instructions Recorded Confirmed lisinopril 5 mg PO DAILY 09/30/12 05/26/21 hydrochlorothiazide 12.5 mg PO DAILY 02/24/17 05/26/21 albuterol sulfate 1 puff IH Q6H PRN #6.7 gm 09/14/18 05/26/21 apple cider vinegar 600 mg capsule 600 mg PO DAILY cap 02/06/19 05/26/21 coenzyme Q10 100 mg capsule 100 mg PO DAILY 02/06/19 05/26/21 pravastatin 20 mg tablet 20 mg PO DAILY 02/06/19 05/26/21 buspirone 30 mg tablet 30 mg PO BID 03/26/20 05/26/21 saw palmetto fruit extract-zinc 1 cap PO DAILY 03/26/20 05/26/21 picolinate 160 mg-15 mg capsule tadalafil 5 mg tablet 5 mg PO PRN tab 03/26/20 05/26/21 vitamin B complex 1 tab PO DAILY 03/26/20 05/26/21 mullein 2 cap PO DAILY 03/27/20 05/26/21 docusate sodium [Colace] 100 mg PO DAILY #30 cap 04/01/20 05/26/21 ibuprofen 600 mg PO Q6H PRN #60 tab 04/01/20 05/26/21 Previous Rx's Medication Instructions Recorded albuterol sulfate 1 puff IH Q6H PRN #6.7 gm 09/14/18 docusate sodium [Colace] 100 mg PO DAILY #30 cap 04/01/20 ibuprofen 600 mg PO Q6H PRN #60 tab 04/01/20 Allergies Allergy/AdvReac Type Severity Reaction Status Date / Time rosuvastatin [From Crestor] Allergy Intermediate Skin Rash Unverified 05/26/21 10:10 amlodipine AdvReac Intermediate angina Unverified 05/26/21 10:10 atorvastatin AdvReac Intermediate vomiting Unverified 05/26/21 10:10 morphine AdvReac Intermediate Nausea Unverified 05/26/21 10:10 codeine [Codeine] AdvReac Mild Nausea Unverified 05/26/21 10:10 General Stated Complaint: Orthopedic VON: 4 Review of Systems All systems reviewed & are unremarkable except as noted in HPI and below Musculoskeletal Musculoskeletal: Reports arthralgias (Left pinky finger) PFS Active Problem List (Updated 05/26/21 @ 11:04 by Johanna Zuniga) Closed fracture of phalanx of left little finger (Acute) Hemorrhoids with complication (Acute) Rectal hemorrhage (Acute) Sensorineural hearing loss, unilateral (Acute 06/10/17) Medical History (Updated 05/26/21 @ 11:04 by Johanna Zuniga) Anxiety Erectile dysfunction Hearing loss Hyperlipidemia Hypertension Irritability Low back pain Muscle pain Plantar fasciitis Skin rash Surgical History (Updated 04/26/20 @ 15:39 by Jocelynn Saeed RN) Colonoscopy - MAC (02/26/17) History of colonoscopy (~04/01/20) Family History Mother Colon cancer Grandfather Colon cancer Social History Smoking/Tobacco Use Status: Never Smoking risk assessment performed?: Yes Alcohol Intake: never Drug use: Never Substance use type: does not use Current gender identity: male Do you feel safe at home: Yes Do you feel safe in your relationship?: Yes Additional Social history: lives alone Exam Extrem Left upper extremity: normal capillary refill and hand Details: normal capillary refill, neuromotor exam normal, neurosensory exam normal, tenderness Location: of the 5th digit Location: at the distal phalanx and swelling Location: of the 5th digit Location: at the distal phalanx; no abrasions and no lacerations Course Vital Signs Vital signs: Vital Signs Temperature 36.9 C 05/26/21 10:05 Pulse 101 H 05/26/21 10:05 Blood Pressure 148/96 H 05/26/21 10:05 Pulse Oximetry 97 05/26/21 10:05 Temperature 36.9 C 05/26/21 10:05 Temperature Source Tympanic 05/26/21 10:05 Pulse 101 H 05/26/21 10:05 Respiratory Effort Non-Labored 05/26/21 10:08 Blood Pressure 148/96 H 05/26/21 10:05 Blood Pressure Position Sitting 05/26/21 10:05 Pulse Oximetry 97 05/26/21 10:05 Oxygen Delivery Method Room Air 05/26/21 10:05 Oxygen Flow Rate 0 05/26/21 10:05 Pain Level 10 05/26/21 10:32
== END 2021-05-26 11:13 | disposition home or self-care (01) ==
PROVIDERS: Emergency Provider Registered Nurse Emergency; PCP Nurse Practitioner
DX: S67.197A Crushing injury of left little finger, initial encounter (principal); S62.627A Displaced fracture of middle phalanx of left little finger, initial encounter for closed fracture; W23.1XXA Caught, crushed, jammed, or pinched between stationary objects, initial encounter; Y99.0 Civilian activity done for income or pay
CPT/HCPCS: 26720; 73140

== ENCOUNTER 2021-05-28 14:33 | Outpatient (CLI) | payer OTHER, SELFPAY ==
--- NOTE | 2021-05-28 14:15 | DI.RAD_ITS ---
Exam(s) XR FINGER LT LITTLE EXAM: XR FINGER LT LITTLE EXAM DATE/TIME: CLINICAL HISTORY: LITTLE FINGER FX F/U. TECHNIQUE: 2D digital imaging was performed of the left finger. Two views were obtained. PA/AP, ob lique, and lateral views were obtained. COMPARISON: Priors available for comparison. FINDINGS: BONES: There has been no change in alignment of the triangular fragment posterior to the head of the middle phalanx. The linear lucency involving the posterior aspect of the base of the middle phalanx persists and is unchanged. No bony destructive lesion is seen. JOINTS: No dislocation is present. SOFT TISSUE: There is soft tissue swelling of the finger. IMPRESSION: Stable left little finger. DATA REPOSITORY: RADIATION DOSE DELIVERED:
== END 2021-05-28 14:34 | disposition home or self-care (01) ==
LOC: DIORS 14:33
PROVIDERS: PCP Nurse Practitioner; Referring Provider Nurse Practitioner; Visit Provider Student in an Organized Health Care Education/Training Program
DX: S62.627D Displaced fracture of middle phalanx of left little finger, subsequent encounter for fracture with routine healing (principal)
CPT/HCPCS: 73140

== ENCOUNTER 2021-08-12 09:17 | Outpatient (CLI) | payer OTHER, SELFPAY ==
--- NOTE | 2021-08-12 08:30 | DI.RAD_ITS ---
Exam(s) XR FINGER LT LITTLE EXAM: XR FINGER LT LITTLE CLINICAL HISTORY: CLOSED MALLET FX F/U OF LEFT LITTLE FINGER. TECHNIQUE: 2D digital imaging was performed. COMPARISON: CR XR FINGER LT LITTLE from 05/28/2021 FINDINGS: Again noted is the previously described calcific density dorsal to the head of the middle phalanx. U nchanged position. No new additional soft tissue densities. Mild degenerative changes are noted in the DIP joint. No erosions evident. IMPRESSION: DATA REPOSITORY: RADIATION DOSE DELIVERED:
== END 2021-08-12 09:18 | disposition home or self-care (01) ==
LOC: DIORS 09:18
PROVIDERS: PCP Nurse Practitioner; Referring Provider Nurse Practitioner; Visit Provider Student in an Organized Health Care Education/Training Program
DX: S62.627D Displaced fracture of middle phalanx of left little finger, subsequent encounter for fracture with routine healing (principal); W23.1XXD Caught, crushed, jammed, or pinched between stationary objects, subsequent encounter
CPT/HCPCS: 73140

== ENCOUNTER 2022-02-22 07:35 | Emergency (ER) | payer BC, SELFPAY ==
[2022-02-22 07:46] VITALS: BP 130/87; PULSE 87; RESP 17; TEMP 36.3; O2SAT 95
--- NOTE | 2022-02-22 08:15 | DI.RAD_ITS ---
Exam(s) XR PORTABLE CHEST AP EXAM: XR PORTABLE CHEST AP CLINICAL HISTORY: covid, sob. TECHNIQUE: 2D digital imaging was performed. COMPARISON: CR CHEST 2 VIEWS PA,LAT from 09/30/2012 FINDINGS: Single AP portable view. Heart size is upper normal. The mediastinum is not widened. Lungs are clear. No infiltrates nor obvious pleural effusions. IMPRESSION: No acute pulmonary findings on this single AP portable view of the chest. DATA REPOSITORY: RADIATION DOSE DELIVERED: All CT scans at this facility use at least one of these dose optimization techniques: automated exposure control; mA and/or kV adjustment per patient size (includes targeted e xams where dose is matched to clinical indication); or iterative reconstruction.
--- NOTE | 2022-02-22 08:25 | ED.GENADUL_ITS ---
Discharge Plan Disposition Patient Disposition: HOME Condition: Improving Discharge Details Clinical Impression: Fatigue, Acute viral syndrome Primary Care Provider: KENDALL JEFF ED Provider: Jose R Garcia Home Meds and New Rx's Prescriptions: New albuterol sulfate 90 mcg/actuation aerosol powdr breath activated 2 inh inhalation Q6H PRN (Reason: shortness of breath or wheezing) Qty: 1 0RF No Action pravastatin 20 mg tablet 20 mg PO DAILY Rx Instructions: 02/16/22 on hold for one week coenzyme Q10 [Co Q-10] 100 mg capsule 100 mg PO DAILY apple cider vinegar 600 mg capsule 600 mg PO DAILY buspirone 30 mg tablet 30 mg PO BID tadalafil [Cialis] 5 mg tablet 5 mg PO PRN vitamin B complex [B Complex-Vitamin B12] Tablet 1 tab PO DAILY saw palmto frt xtr-zinc picoli 160-15 mg capsule 1 cap PO DAILY mullein 580 mg capsule 2 cap PO DAILY acetaminophen [Tylenol] 325 mg capsule 325 mg PO ONCE PRN lisinopril 5 MG tablet 5 mg PO DAILY hydrochlorothiazide 12.5 MG tablet 12.5 mg PO DAILY Aspirin Tri Buffered 500 mg Tablet 1 tab PO PRN PRN docusate sodium [Colace] 100 mg capsule 100 mg PO DAILY Qty: 30 2RF Discharge Instructions Instructions: Viral Syndrome (ED) Additional Instructions: Please follow-up with your primary care physician. Please return to the emergency department for any worsening symptoms. Medical Decision Making 56-year-old male history of hemorrhoids, recent COVID diagnosis, on Paxil other, presents with lightheadedness fatigue shortness of breath and intermittent blood-streaked stool over the past couple of days. Patient is nontoxic afebrile no respiratory distress lungs are clear bilaterally no peripheral edema. Nonthrombosed nonbleeding external hemorrhoid. Likely symptomatic COVID versus reaction to Paxlovid versus dehydration versus less likely developing pneumonia versus unlikely ACS versus less likely PE. Will obtain screening labs, x-ray, will provide fluids and anti-inflammatory. Close reassessment likely home with close follow-up. 9: 40 patient resting comfortably no acute distress. Feeling much better after fluids and steroids. Labs unremarkable. X-ray clear. Home care instructions and return precautions given. HPI General Date/Time Provider Initiated Documentation: 02/22/22 07:37 . HPI Narrative: 56-year-old male history of hemorrhoids, recent COVID diagnosis on Paxil but presents with generalized lightheadedness fatigue shortness of breath and intermittent blood streaked stool. Related Data Home Medications Medication Instructions Recorded Confirmed lisinopril 5 mg tablet 5 mg PO DAILY 09/30/12 02/22/22 hydrochlorothiazide 12.5 mg tablet 12.5 mg PO DAILY 02/24/17 02/22/22 apple cider vinegar 600 mg capsule 600 mg PO DAILY 02/06/19 02/22/22 coenzyme Q10 100 mg capsule (Co 100 mg PO DAILY 02/06/19 02/22/22 Q-10) pravastatin 20 mg tablet 20 mg PO DAILY 02/06/19 02/22/22 buspirone 30 mg tablet 30 mg PO BID 03/26/20 02/22/22 saw palmetto fruit extract-zinc 1 cap PO DAILY 03/26/20 02/22/22 picolinate 160 mg-15 mg capsule tadalafil 5 mg tablet (Cialis) 5 mg PO PRN 03/26/20 02/22/22 vitamin B complex (B 1 tab PO DAILY 03/26/20 02/22/22 Complex-Vitamin B12 tablet) mullein 2 cap PO DAILY 03/27/20 02/22/22 docusate sodium 100 mg capsule 100 mg PO DAILY #30 caps 04/01/20 02/22/22 (Colace) acetaminophen 325 mg capsule 325 mg PO ONCE PRN 11/12/21 02/22/22 (Tylenol) albuterol sulfate 90 mcg/actuation 2 inh inhalation Q6H PRN shortness 02/22/22 breath activated powder inhaler of breath or wheezing #1 ea aspirin,buffered(calcium 1 tab PO PRN PRN 02/22/22 02/22/22 [id number] hydrx) 500 mg tablet Previous Rx's Medication Instructions Recorded docusate sodium 100 mg capsule 100 mg PO DAILY #30 caps 04/01/20 (Colace) albuterol sulfate 90 mcg/actuation 2 inh inhalation Q6H PRN shortness 02/22/22 breath activated powder inhaler of breath or wheezing #1 ea Allergies Allergy/AdvReac Type Severity Reaction Status Date / Time rosuvastatin [From Crestor] Allergy Intermediate Skin Rash Verified 02/22/22 07:53 amlodipine AdvReac Intermediate angina Verified 02/22/22 07:53 atorvastatin AdvReac Intermediate vomiting Verified 02/22/22 07:53 morphine AdvReac Intermediate Nausea Verified 02/22/22 07:53 codeine [Codeine] AdvReac Mild Nausea, Verified 02/22/22 08:26 upset stomach General Stated Complaint: GenMedical VON: 3 Review of Systems Narrative: Review of Systems Constitutional: Fatigue, lightheadedness Eyes: negative ENT: negative Cardiovascular: negative Respiratory: Shortness of breath Gastrointestinal: Blood-streaked stool : negative Musculoskeletal: negative Skin: negative Neurologic: negative Psych: negative PFSH All Active Problems (Updated 02/22/22 @ 09:40 by Jose R Garcia MD) Fatigue (Acute) Acute viral syndrome (Acute) Bilateral carpal tunnel syndrome (Acute) Trigger finger, left little finger (Acute) Left carpal tunnel syndrome (Acute) Closed mallet fracture of distal phalanx of left little finger (Acute 05/26/21) Hemorrhoids with complication (Acute) Rectal hemorrhage (Acute) Sensorineural hearing loss, unilateral (Acute 06/10/17) Medical History Anxiety Erectile dysfunction Hearing loss Hyperlipidemia Hypertension Irritability Low back pain Muscle pain Plantar fasciitis Skin rash Surgical History Colonoscopy - MAC (02/26/17) History of colonoscopy (~04/01/20) Family History Mother Colon cancer Grandfather Colon cancer Social History Smoking/Tobacco Use Status: Never Smoking risk assessment performed?: Yes Alcohol Intake: never Drug use: Never Substance use type: does not use Current gender identity: male Do you feel safe at home: Yes Do you feel safe in your relationship?: Yes Additional Social history: lives alone Exam Narrative Exam Narrative: Physical Examination General: alert, awake, cooperative, resting comfortably, no acute distress HEENT: normocephalic, atraumatic; PERRL, EOM intact, conjunctiva normal; no nasal discharge; moist mucous membranes, oral and pharyngeal mucosa normal, tolerating secretions Neck: supple, trachea midline; full ROM Chest: normal to inspection Respiratory: normal respiratory effort, speaking in full sentences, clear to auscultation, no wheezing, rales or rhonchi Cardiac: regular rate, regular rhythm, S1S2 intact, no murmurs rubs or gallops GI: abdomen soft, non-tender, non-distended; no palpable mass or hepatosplenomegaly; nonbleeding, nonthrombosed external hemorrhoid Skin: no lesions, rashes or trauma appreciated Neuro: AAOx3, normal speech, moving all extremities Extremities: No peripheral edema Psych: Appropriate mood and affect Course Vital Signs Vital signs: Vital Signs Temperature 36.3 C L 02/22/22 07:46 Pulse 87 02/22/22 07:46 Respiratory Rate 17 02/22/22 07:46 Blood Pressure 130/87 02/22/22 07:46 Pulse Oximetry 95 02/22/22 07:46 Temperature 36.3 C L 02/22/22 07:46 Temperature Source Tympanic 02/22/22 07:46 Pulse 87 02/22/22 07:46 Respiratory Rate 17 02/22/22 07:46 Blood Pressure 130/87 02/22/22 07:46 Blood Pressure Position Sitting 02/22/22 07:46 Pulse Oximetry 95 02/22/22 07:46 Oxygen Delivery Method Room Air 02/22/22 07:46 Oxygen Flow Rate 0 02/22/22 07:46
[2022-02-22] MEDS: Dexamethasone 10 MG/ML VIAL IVP (08:50)
[2022-02-22] MEDS: Normal Saline 1,000 ML 1000 ML IV (08:50)
[2022-02-22] MEDS: Ondansetron 4 MG/2 ML VIAL IVP (08:50)
--- NOTE | 2022-02-22 09:00 | DI.VRAD_ITS ---
PROCEDURE INFORMATION: Exam: XR Chest Exam date and time: 02/22/2022 8:27 AM Age: 56 years old Clinical indication: Shortness of breath; Patient HX: Sob/ pos covid TECHNIQUE: Imaging protocol: Radiologic exam of the chest. Views: 1 view. COMPARISON: No relevant prior studies available. FINDINGS: Lungs: No airspace infiltrate. Pleural spaces: No evidence of pleural effusion or pneumothorax. Heart/Mediastinum: Unremarkable. No cardiomegaly. Bones/joints: No significant osseous abnormality. IMPRESSION: No acute findings. Dictated and Authenticated by: Farooq Valle MD. Ordering:GRECIA Odell MD
[2022-02-22 09:01] LABS: Abs Immature Grans 0.04 10^3/uL (0.0-0.06); Absolute Basophil Count 0.03 10^3/uL (0.0-0.2); Absolute Eosinophil Count 0.08 10^3/uL (0.0-0.7); Absolute Monocyte Count 0.76 10^3/uL (0.1-0.8); Absolute Neutrophil Count 6.61 10^3/uL (1.2-6.7); Basophils % 0.3; Eosinophils % 0.9; HCT 47.2 % (40.0-50.0); HGB 16.6 g/dL (13.5-17.5); Immature Grans % 0.4; Lymphocytes % 16.6; MCHC 35.2 % (32.0-36.0); MCV 94 fL (80-95); Monocytes % 8.4; Neutrophils % 73.4; Platelet Count 228 10^3/uL (130-400); RBC 5.03 10^6/uL (4.36-5.78); RDW 11.6 % (11.8-14.1); WBC 9.02 10^3/uL (4.4-10.8)
[2022-02-22 09:15] LABS: ALT 33 U/L (16-63); AST 18 U/L (15-37); Albumin 3.9 g/dL (3.4-5.0); Alkaline Phosphatase 52 U/L (46-116); Anion Gap 7.9 mmol/L (3-11); BUN 16 mg/dL (7-18); Bilirubin, Total 0.5 mg/dL (0.2-1.0); CO2 28.1 mmol/L (21.0-32.0); CREATININE 1.1 mg/dL (0.70-1.30); Calcium 9.3 mg/dL (8.5-10.1); Chloride 103 mmol/L (98-107); Glucose 127 mg/dL (74-106); Potassium 3.8 mmol/L (3.5-5.1); Sodium 139 mmol/L (136-145); Total Protein 7.4 g/dL (6.4-8.2)
[2022-02-22 09:58] VITALS: BP 138/88; PULSE 77; RESP 18; TEMP 36.6; O2SAT 95
[2022-02-22 10:00] VITALS: RESP 17
== END 2022-02-22 10:09 | disposition home or self-care (01) ==
PROVIDERS: Emergency Provider Emergency Medicine; PCP Nurse Practitioner Family
DX: B34.9 Viral infection, unspecified (principal); Z86.16 Personal history of COVID-19; I10 Essential (primary) hypertension
CPT/HCPCS: 80053; 96361; 96374; 96375; 99284; 71045; 85025; J1100; J2405

== ENCOUNTER 2022-02-22 15:30 | Emergency (ER) | payer BC, SELFPAY ==
[2022-02-22 15:42] VITALS: BP 136/90; PULSE 106; RESP 17; TEMP 36.5; O2SAT 95
--- NOTE | 2022-02-22 16:11 | ED.GENADUL_ITS ---
Discharge Plan Disposition Patient Disposition: HOME Condition: Stable Discharge Details Clinical Impression: COVID Primary Care Provider: KENDALL JEFF ED Provider: Guille Pitt Home Meds and New Rx's Prescriptions: No Action pravastatin 20 mg tablet 20 mg PO DAILY Rx Instructions: 02/16/22 on hold for one week coenzyme Q10 [Co Q-10] 100 mg capsule 100 mg PO DAILY apple cider vinegar 600 mg capsule 600 mg PO DAILY buspirone 30 mg tablet 30 mg PO BID tadalafil [Cialis] 5 mg tablet 5 mg PO PRN vitamin B complex [B Complex-Vitamin B12] Tablet 1 tab PO DAILY saw palmto frt xtr-zinc [place] 160-15 mg capsule 1 cap PO DAILY mullein 580 mg capsule 2 cap PO DAILY acetaminophen [Tylenol] 325 mg capsule 325 mg PO ONCE PRN lisinopril 5 MG tablet 5 mg PO DAILY hydrochlorothiazide 12.5 MG tablet 12.5 mg PO DAILY Aspirin Tri Buffered 500 mg Tablet 1 tab PO PRN PRN albuterol sulfate 90 mcg/actuation aerosol powdr breath activated 2 inh inhalation Q6H PRN (Reason: shortness of breath or wheezing) Qty: 1 0RF docusate sodium [Colace] 100 mg capsule 100 mg PO DAILY Qty: 30 2RF Discharge Instructions Instructions: COVID-19 (Coronavirus Disease 2019) (ED) Additional Instructions: It is very important during viral illness to stay well-hydrated and get plenty of rest. As discussed to aid in your sleep please take 5 mg of melatonin along with 1 or 2 tablets of Benadryl. 30 minutes after taking these medications go ahead and head to bed. It is important to have your bedroom cool dark and quiet as this will aid in obtaining appropriate sleep. If you develop chest pain or shortness of breath or worrisome findings of concern feel free to return the emergency department otherwise if not improving in the next 5 to 7 days follow-up with your primary care provider for reassessment. Referrals: KENDALL JEFF, [facility] [Primary Care Provider] - 1 week Discharge Data Discharge Date/Time-TO BE ENTERED AT DEPARTURE: 02/22/22 16:31 Medical Decision Making Patient presenting to the emergency for complaint of insomnia and brain fog after COVID. Patient was seen here this morning emergency department and given steroids and fluids which he states he overall feels better, denies any chest pain or shortness of breath but does state that he was continuing to have the mental symptoms. He did complete his Paxlovid yesterday morning but has noted some increasing symptoms towards the end of the Paxlovid and since stopped. Patient states that the insomnia has been going on for days and does not seem to be related to the steroids. Physical exam is unremarkable with slight tachycardia noted on checking vital signs but did not appreciate this on exam, clear lung sounds, no respiratory distress and patient oxygenating well. No gross neurological dysfunction. I feel that patient has standard COVID symptoms and potentially caused by rebound effect after finishing antiviral therapy. Patient encouraged to get plenty of rest and stay well-hydrated and take the next couple days off. Patient follow-up with primary care provider if not improving or return for any emergent findings. After discussion of diagnosis and plan of care patient has no further needs, questions, or concerns and states clear understanding to return to the emergency department for any worsening symptoms. This documentation was generated using [employer] dictation system, please disregard any oddities of phrase or misspellings. HPI General Mode of arrival: ambulatory . Date/Time Provider Initiated Documentation: 02/22/22 15:52 . Limitations to Documentation: no limitations . Information obtained by: patient, RN notes reviewed and old records reviewed . History of Present Illness 56 year old M presents to the emergency department with the chief complaint of COVID insomnia, described as moderate, Quality is described as other (Denies pain or discomfort), Patient started experiencing this week(s) (1) and it has been constant. No relieving factors improve symptom(s), No exacerbating factors reported . Patient notes malaise; denies chest pain, cough, headaches and shortness of breath. Patient did receive the following treatments prior to arrival, NSAID Related Data Home Medications Medication Instructions Recorded Confirmed lisinopril 5 mg tablet 5 mg PO DAILY 09/30/12 02/22/22 hydrochlorothiazide 12.5 mg tablet 12.5 mg PO DAILY 02/24/17 02/22/22 apple cider vinegar 600 mg capsule 600 mg PO DAILY 02/06/19 02/22/22 coenzyme Q10 100 mg capsule (Co 100 mg PO DAILY 02/06/19 02/22/22 Q-10) pravastatin 20 mg tablet 20 mg PO DAILY 02/06/19 02/22/22 buspirone 30 mg tablet 30 mg PO BID 03/26/20 02/22/22 saw palmetto fruit extract-zinc 1 cap PO DAILY 03/26/20 02/22/22 picolinate 160 mg-15 mg capsule tadalafil 5 mg tablet (Cialis) 5 mg PO PRN 03/26/20 02/22/22 vitamin B complex (B 1 tab PO DAILY 03/26/20 02/22/22 Complex-Vitamin B12 tablet) mullein 2 cap PO DAILY 03/27/20 02/22/22 docusate sodium 100 mg capsule 100 mg PO DAILY #30 caps 04/01/20 02/22/22 (Colace) acetaminophen 325 mg capsule 325 mg PO ONCE PRN 11/12/21 02/22/22 (Tylenol) albuterol sulfate 90 mcg/actuation 2 inh inhalation Q6H PRN shortness 02/22/22 02/22/22 breath activated powder inhaler of breath or wheezing #1 ea aspirin,buffered(calcium 1 tab PO PRN PRN 02/22/22 02/22/22 exqi-[id number] hydrx) 500 mg tablet Previous Rx's Medication Instructions Recorded docusate sodium 100 mg capsule 100 mg PO DAILY #30 caps 04/01/20 (Colace) albuterol sulfate 90 mcg/actuation 2 inh inhalation Q6H PRN shortness 02/22/22 breath activated powder inhaler of breath or wheezing #1 ea Allergies Allergy/AdvReac Type Severity Reaction Status Date / Time rosuvastatin [From Crestor] Allergy Intermediate Skin Rash Verified 02/22/22 15:46 amlodipine AdvReac Intermediate angina Verified 02/22/22 15:46 atorvastatin AdvReac Intermediate vomiting Verified 02/22/22 15:46 morphine AdvReac Intermediate Nausea Verified 02/22/22 15:46 codeine [Codeine] AdvReac Mild Nausea, Verified 02/22/22 15:46 upset stomach General Stated Complaint: Recheck VON: 5 Review of Systems Constitutional Constitutional: Reports body ache(s), Reports fatigue, Reports fever(s) (Now resolved), Denies headache(s) and Reports malaise Eyes Eyes: Denies eye discharge ENT Ears, Nose, Mouth, and Throat: Reports as per HPI, Denies dizziness, Denies otalgia, Denies headache(s), Denies neck pain and Denies sore throat Cardiovascular Cardiovascular: Denies chest pain and Denies dyspnea Respiratory Respiratory: Denies cough and Denies dyspnea Gastrointestinal Gastrointestinal: Denies abdominal pain, Denies nausea and Denies vomiting Musculoskeletal Musculoskeletal: Denies joint swelling and Denies neck pain Integumentary/Breasts Skin/Breast: Denies rash Neurologic Neurologic: Denies dizziness and Denies headache(s) Psychiatric Psychiatric: Reports as per HPI and Reports abnormal sleep pattern Endocrine Endocrine: Reports fatigue PFSH All Active Problems Fatigue (Acute) Acute viral syndrome (Acute) COVID (Acute) Bilateral carpal tunnel syndrome (Acute) Trigger finger, left little finger (Acute) Left carpal tunnel syndrome (Acute) Closed mallet fracture of distal phalanx of left little finger (Acute 05/26/21) Hemorrhoids with complication (Acute) Rectal hemorrhage (Acute) Sensorineural hearing loss, unilateral (Acute 06/10/17) Medical History Anxiety Erectile dysfunction Hearing loss Hyperlipidemia Hypertension Irritability Low back pain Muscle pain Plantar fasciitis Skin rash Surgical History Colonoscopy - MAC (02/26/17) History of colonoscopy (~04/01/20) Family History Mother Colon cancer Grandfather Colon cancer Social History Smoking/Tobacco Use Status: Never Smoking risk assessment performed?: Yes Alcohol Intake: never Drug use: Never Substance use type: does not use Current gender identity: male Do you feel safe at home: Yes Do you feel safe in your relationship?: Yes Additional Social history: lives alone Exam Const General: cooperative, comfortable and no acute distress Orientation: alert and awake [facility] Head: normal to inspection, normocephalic and atraumatic Ears: hearing grossly normal bilaterally and TM's normal bilaterally General nose exam: external nose normal Face and sinus: no erythema Mouth: oral mucosae normal, no drooling, no muffled voice and no trismus Throat: posterior oropharynx normal Neck Neck: normal visual inspection, full ROM, no meningeal signs, trachea midline and supple Resp Effort & Inspection: normal respiratory effort and able to speak in complete sentences Auscultation: clear to auscultation bilaterally Cardio Rate: regular rate Rhythm: regular rhythm Heart Sounds: S1 normal, S2 normal, normal S1 and S2, no click, no gallops, no murmurs and no rubs Skin General skin exam: no rashes or lesions noted and dry skin (warm) Neuro General: patient alert, patient awake, patient oriented x3, gait normal and moves all extremities Cognition: normal cognition Speech: speech normal Course Vital Signs Vital signs: Vital Signs Temperature 36.5 C 02/22/22 15:42 Pulse 106 H 02/22/22 15:42 Respiratory Rate 17 02/22/22 15:42 Blood Pressure 136/90 02/22/22 15:42 Pulse Oximetry 95 02/22/22 15:42 Temperature 36.5 C 02/22/22 15:42 Temperature Source Temporal Artery Scan 02/22/22 15:42 Pulse 106 H 02/22/22 15:42 Respiratory Rate 17 02/22/22 15:42 Respiratory Effort Non-Labored 02/22/22 15:44 Blood Pressure 136/90 02/22/22 15:42 Blood Pressure Position Sitting 02/22/22 15:42 Pulse Oximetry 95 02/22/22 15:42 Oxygen Delivery Method Room Air 02/22/22 15:42 Oxygen Flow Rate 0 02/22/22 15:42 Pain Level 0 02/22/22 15:42
== END 2022-02-22 16:31 | disposition home or self-care (01) ==
PROVIDERS: Emergency Provider Nurse Practitioner Family; PCP Nurse Practitioner Family
DX: U07.1 COVID-19 (principal); G47.00 Insomnia, unspecified; I10 Essential (primary) hypertension
CPT/HCPCS: 99281; 99282

== ENCOUNTER 2022-04-01 09:41 | Day surgery (SDC) | payer BC, SELFPAY ==
[2022-04-01 10:06] VITALS: BP 144/99; PULSE 78; RESP 16; TEMP 36.6; O2SAT 97
--- NOTE | 2022-04-01 11:14 | W.PREOPHP ---
Assessment and Plan Assessment and plan (1) Bilateral carpal tunnel syndrome: Status: Acute Assessment and plan: Lowell is a 56-year-old who has bilateral carpal tunnel syndrome. He is here for the left side. We plan to the right side at upcoming date. I reviewed the surgical procedure with him. All of his questions were answered. I reviewed the risk to include bleeding, infection, pain, stiffness, continued numbness, swelling, need for repeat procedures. Despite these risk, he elects to proceed. History of Present Illness History of Present Illness Chief Complaint: Bilateral carpal tunnel syndrome Narrative: Lowell is a 56-year-old who has bilateral carpal tunnel syndrome. Please see the previous office note for complete detailed history. He is here today for his left side to be followed by his right side. He denies any changes to his health. Review of Systems All systems reviewed & are unremarkable except as noted in HPI and below PFSH All Active Problems Sensorineural hearing loss, unilateral (Acute 06/10/17) Rectal hemorrhage (Acute) Hemorrhoids with complication (Acute) Closed mallet fracture of distal phalanx of left little finger (Acute 05/26/21) Left carpal tunnel syndrome (Acute) Trigger finger, left little finger (Acute) Bilateral carpal tunnel syndrome (Acute) COVID (Acute) Medical History Anxiety Erectile dysfunction Hearing loss Hyperlipidemia Hypertension Irritability Low back pain Muscle pain Plantar fasciitis Skin rash Surgical History Colonoscopy - MAC (02/26/17) History of colonoscopy (~04/01/20) History of surgery ORIF left elbow. Hardware removed 2020 Family History Mother Colon cancer Grandfather Colon cancer Social History Smoking/Tobacco Use Status: Never Smoking risk assessment performed?: Yes Alcohol Intake: never Drug use: Never Substance use type: does not use Current gender identity: male Do you feel safe at home: Yes Do you feel safe in your relationship?: Yes Additional Social history: lives alone Meds Allergies and Home Medications Allergies Allergy/AdvReac Type Severity Reaction Status Date / Time rosuvastatin [From Crestor] Allergy Intermediate Skin Rash Verified 04/01/22 10:13 amlodipine AdvReac Intermediate angina Verified 04/01/22 10:13 atorvastatin AdvReac Intermediate vomiting Verified 04/01/22 10:13 morphine AdvReac Intermediate Nausea Verified 04/01/22 10:13 codeine [Codeine] AdvReac Mild Nausea, Verified 04/01/22 10:13 upset stomach Home Medications Medication Instructions Recorded Confirmed Type lisinopril 5 mg tablet 5 mg PO DAILY 09/30/12 04/01/22 History hydrochlorothiazide 12.5 mg tablet 12.5 mg PO DAILY 02/24/17 04/01/22 History apple cider vinegar 600 mg capsule 600 mg PO DAILY 02/06/19 04/01/22 History coenzyme Q10 100 mg capsule (Co 100 mg PO DAILY 02/06/19 04/01/22 History Q-10) pravastatin 20 mg tablet 20 mg PO DAILY 02/06/19 04/01/22 History buspirone 30 mg tablet 30 mg PO BID 03/26/20 04/01/22 History saw palmetto fruit extract-zinc 1 cap PO DAILY 03/26/20 04/01/22 History picolinate 160 mg-15 mg capsule tadalafil 5 mg tablet (Cialis) 5 mg PO PRN 03/26/20 03/31/22 History vitamin B complex (B 1 tab PO DAILY 03/26/20 04/01/22 History Complex-Vitamin B12 tablet) mullein 2 cap PO DAILY 03/27/20 04/01/22 History docusate sodium 100 mg capsule 100 mg PO DAILY #30 caps 04/01/20 03/31/22 Rx (Colace) acetaminophen 325 mg capsule 325 mg PO ONCE PRN 11/12/21 04/01/22 History (Tylenol) albuterol sulfate 90 mcg/actuation 2 inh inhalation Q6H PRN shortness 02/22/22 03/31/22 Rx breath activated powder inhaler of breath or wheezing #1 ea aspirin,buffered(calcium 1 tab PO PRN PRN 02/22/22 03/31/22 History pmhr-jnqrfellp-aqzhgjnd hydrx) 500 mg tablet Exam Resp Auscultation: clear to auscultation bilaterally Cardio Rate: regular rate Rhythm: regular rhythm Results Last Vital Signs Temp 36.6 C 04/01/22 10:06 Pulse 78 04/01/22 10:06 Resp 16 04/01/22 10:06 BP 144/99 H 04/01/22 10:06 Pulse Ox 97 04/01/22 10:06
--- NOTE | 2022-04-01 11:27 | W.ANESPRE ---
General Info Date of Service Date Performed: 04/01/22 Height: 5 ft 3 in Weight: 77.111 kg Body Mass Index (BMI): 30.1 Surgical Procedure: Operation Date: 04/01/22 11:55 Proposed Procedure Side Surgeon p Wrist ECTR Left Danny Estevez MD Meds Allergies and Home Medications Allergies Allergy/AdvReac Type Severity Reaction Status Date / Time rosuvastatin [From Crestor] Allergy Intermediate Skin Rash Verified 04/01/22 10:13 amlodipine AdvReac Intermediate angina Verified 04/01/22 10:13 atorvastatin AdvReac Intermediate vomiting Verified 04/01/22 10:13 morphine AdvReac Intermediate Nausea Verified 04/01/22 10:13 codeine [Codeine] AdvReac Mild Nausea, Verified 04/01/22 10:13 upset stomach Home Medication Medication Instructions Recorded lisinopril 5 mg tablet 5 mg PO DAILY 09/30/12 hydrochlorothiazide 12.5 mg tablet 12.5 mg PO DAILY 02/24/17 apple cider vinegar 600 mg capsule 600 mg PO DAILY 02/06/19 coenzyme Q10 100 mg capsule (Co 100 mg PO DAILY 02/06/19 Q-10) pravastatin 20 mg tablet 20 mg PO DAILY 02/06/19 buspirone 30 mg tablet 30 mg PO BID 03/26/20 saw palmetto fruit extract-zinc 1 cap PO DAILY 03/26/20 picolinate 160 mg-15 mg capsule tadalafil 5 mg tablet (Cialis) 5 mg PO PRN 03/26/20 vitamin B complex (B 1 tab PO DAILY 03/26/20 Complex-Vitamin B12 tablet) mullein 2 cap PO DAILY 03/27/20 docusate sodium 100 mg capsule 100 mg PO DAILY #30 caps 04/01/20 (Colace) acetaminophen 325 mg capsule 325 mg PO ONCE PRN 11/12/21 (Tylenol) albuterol sulfate 90 mcg/actuation 2 inh inhalation Q6H PRN shortness 02/22/22 breath activated powder inhaler of breath or wheezing #1 ea aspirin,buffered(calcium 1 tab PO PRN PRN 02/22/22 pfam-qotifkvtm-zkvhxuxv hydrx) 500 mg tablet Current Visit Medications: Current Medications Generic Name Dose Route Start Last Admin Trade Name Freq PRN Reason Stop Dose Admin Ringer's Solution 1,000 mls @ 80 mls/hr 10/05/22 06:00 IV 04/30/22 23:59 INFUSION TAYLOR IV Miscellaneous Supplies 1 each 04/01/22 06:00 Iv Access IV 04/30/22 23:59 DIRECTED TAYLOR Sodium Chloride 0 ml 04/01/22 06:00 Normal Saline Flush 10 Ml Syr IV 04/30/22 23:59 PRN PRN Sodium Chloride 0 ml 04/01/22 06:00 Normal Saline 10 Ml Vial IJ 04/30/22 23:59 DIRECTED PRN Sterile Water 0 ml 04/01/22 06:00 Water,Injection,Sterile 10 Ml Vial IJ 04/30/22 23:59 DIRECTED PRN PFSH Active Problems Active Problems: Problem Status Onset Code Sensorineural hearing loss, unilateral 06/10/17 H90.5 Rectal hemorrhage K62.5 Hemorrhoids with complication K64.8 Closed mallet fracture of distal phalanx of left little finger 05/26/21 S62.637A Left carpal tunnel syndrome G56.02 Trigger finger, left little finger M65.352 Bilateral carpal tunnel syndrome G56.03 COVID U07.1 Medical History Medical History Anxiety Erectile dysfunction Hearing loss Hyperlipidemia Hypertension Irritability Low back pain Muscle pain Plantar fasciitis Skin rash Surgical History Surgical History Colonoscopy - MAC (02/26/17) History of colonoscopy (~04/01/20) History of surgery ORIF left elbow. Hardware removed 2020 Tobacco Smoking/Tobacco Use Status: Never Alcohol Alcohol Intake: never Substance Use Substance use: Never Substance use type: does not use Vital Signs and Lab Results Vital Signs Most Recent Vital Signs in EMR: Most Recent Vital Signs Temp Pulse Resp BP Pulse Ox 36.6 C 78 16 144/99 H 97 04/01/22 10:06 04/01/22 10:06 04/01/22 10:06 04/01/22 10:06 04/01/22 10:06 Lab Results Blood Type / Crossmatch: No Data to Display Complete Blood Count: No Data to Display Complete Metabolic Panel: No Data to Display Liver Function Panel: No Data to Display Coagulation Panel: No Data to Display Cardiac Panel: No Data to Display Arterial Blood Gas: No Data to Display Venous Blood Gas: No Data to Display Pancreas Panel: No Data to Display Thyroid Panel: No Data to Display Infectious Disease: No Data to Display Blood Cultures: No Data to Display Toxicology Panel: No Data to Display Anesthesia Assessment and Plan Anesthesia History Personal History: No History of Anesthesia Complications Family History: No Family History of Anesthesia Complications Exercise Tolerance Exercise Tolerance: Metabolic Equivalents>4 Pertinent Negatives Pertinent Negatives: No Symptoms of GERD, No Major Cardiovascular Symptoms or Complaints, No Major Pulmonary Symptoms or Complaints and No History of CVA/TIA Cardiac & Pulmonary Exam Cardiac Exam: Normal S1/S2 Heart Sounds Pulmonary Exam: Clear Bilateral Breath Sounds Implantable Cardiac Device Does patient have a Pacemaker or an ICD?: No Airway Exam Known Difficult Airway: No Mallampati Class: 1 Mouth Opening: Normal (> 3cm) Thyromental Distance: Greater than 3 cm Neck Range of Motion: Full ROM Neck Circumference: Normal Teeth Condition: Normal Dentition ASA Classification ASA Score: ASA 2 Emergency Case?: No NPO Status NPO Status: NPO Clears >2 hours, Solids >8 hours Anesthesia Plan Resuscitation Status: Full Code Anesthesia Technique: General Anesthesia Airway Planned: Natural Airway Monitors Used: Standard Monitors
[2022-04-01 11:29] VITALS: BMI 30.1
--- NOTE | 2022-04-01 12:29 | W.PM.DSUDISC ---
Discharge Plan Disposition Patient Disposition: HOME Condition: Good Discharge Details Reason For Visit: ECTR Attending Provider: Danny Estevez Primary Care Provider: KENDALL JEFF Home Meds and New Rx's Prescriptions: New hydrocodone-acetaminophen 5-325 mg tablet 1 tab PO Q6H PRNQty: 5 0RF ibuprofen 600 mg tablet 600 mg PO TID Qty: 15 0RF acetaminophen 500 mg capsule 1,000 mg PO Q8H PRN PRNQty: 15 0RF Continued pravastatin 20 mg tablet 20 mg PO DAILY Rx Instructions: 02/16/22 on hold for one week coenzyme Q10 [Co Q-10] 100 mg capsule 100 mg PO DAILY apple cider vinegar 600 mg capsule 600 mg PO DAILY buspirone 30 mg tablet 30 mg PO BID tadalafil [Cialis] 5 mg tablet 5 mg PO PRN vitamin B complex [B Complex-Vitamin B12] Tablet 1 tab PO DAILY saw palmto frt xtr-zinc [place] 160-15 mg capsule 1 cap PO DAILY mullein 580 mg capsule 2 cap PO DAILY acetaminophen [Tylenol] 325 mg capsule 325 mg PO ONCE PRN lisinopril 5 MG tablet 5 mg PO DAILY hydrochlorothiazide 12.5 MG tablet 12.5 mg PO DAILY ASA-calcium twke-awb-gfcuxylq 500 mg Tablet 1 tab PO PRN PRN albuterol sulfate 90 mcg/actuation aerosol powdr breath activated 2 inh inhalation Q6H PRN (Reason: shortness of breath or wheezing) Qty: 1 0RF docusate sodium [Colace] 100 mg capsule 100 mg PO DAILY Qty: 30 2RF Discharge Instructions Stand Alone Forms: Herb Lassiter Tunnel Release Referrals: Danny Estevez MD [ [facility] STAFF PHYSICIAN] - Activity:: Activity as Tolerated Remove Dressings/Wound Care:: 72 hours Shower/Bathe:: 72 hours Diet:: As Tolerated Discharge Orders Discharge Orders: Discharge Order (Routine); Ordered 04/01/22 Ordered By: Dinorah Rogers DS: Diagnosis Discharge Diagnosis (1) Bilateral carpal tunnel syndrome: Status: Acute
[2022-04-01] MEDS: Lidocaine 1% Pres-Free 30 ML VIAL (12:57)
[2022-04-01 13:10] VITALS: BP 130/94; PULSE 81; RESP 16; TEMP 36.1; O2SAT 95
--- NOTE | 2022-04-01 13:14 | W.ANESPOSTOP ---
Postoperative Evaluation Date, Time and Location Date Performed: 04/01/22 Time Performed: 13:14 Patient Location: Day Surgery Unit Vital Signs Most Recent Imported Vital Signs: Most Recent Vital Signs Temp Pulse Resp BP Pulse Ox 36.6 C 78 16 144/99 H 97 04/01/22 10:06 04/01/22 10:06 04/01/22 10:06 04/01/22 10:06 04/01/22 10:06 Most Recent Manually Entered Vital Signs: Adult Blood Pressure: 134/90 Heart Rate: 86 Respirations: 12 Oxygen Saturation (%): 98 Temperature (C): 36.3 C Pain Score (0-10 Scale): 0 Pain Score Most Recent Pain Score: Most Recent Pain Score Pain Level 0 04/01/22 10:06 Assessment Mental Status: Awake (Alert & Oriented to Patient Baseline) Airway and Respiratory Function: Patent airway with normal (patient baseline) respiratory exam Cardiovascular Function: Hemodynamically Stable Hydration Status: Adequately Hydrated Nausea & Vomiting: No Nausea or Vomiting Pain: Pt. Denies Any Pain Peripheral Nerve Block: Patient did not receive a nerve block
[2022-04-01 13:15] VITALS: BP 134/90; PULSE 86; RESP 12; TEMPC 36.3; O2SAT 98
[2022-04-01] MEDS: Lactated Ringers 1,000 ML 80 ML IV (13:25)
[2022-04-01 13:35] VITALS: BP 130/85; PULSE 72; RESP 16; TEMP 36.1; O2SAT 99
[2022-04-01 14:20] VITALS: BP 134/93; PULSE 74; RESP 17; TEMP 36.5; O2SAT 96
--- NOTE | 2022-04-01 18:24 | W.PM.OP ---
Date of service: 04/01/22 Time of Service: 12:30 Operative Note Operative Note DATE OF PROCEDURE: 04/01/22 PRE-OP DIAGNOSIS: Left Carpal Tunnel Syndrome POST-OP DIAGNOSIS: same PROCEDURE: Left Endoscopic Carpal Tunnel Release SURGEON: Danny Estevez ANESTHESIA TYPE: General:No Airway Refer to Anesthesia Record ESTIMATED BLOOD LOSS: 0 PATHOLOGY: none sent TOURNIQUET TIME: 6 COMPLICATIONS: None Patient was transported to: same day Patient's condition: stable Indications: I have seen Lowell in clinic for symptoms of carpal tunnel syndrome. The numbness, tingling, and pain limited function. Clinical exam findings confirmed the diagnosis of carpal tunnel syndrome. Nonoperative measures such as bracing, time, activity modifications had been tried but disability and pain persisted. I discussed carpal tunnel release with the patient. I reviewed the risks of the procedure to include, but not limited to, bleeding, infection, pain, stiffness, incomplete release, damage to nerves or vessels, persistent numbness, recurrence. Despite these risks, the patient elected to proceed. Findings: There was tightened carpal tunnel. This was dilated and released successfully with the endoscopic with increased space within the tunnel. The antebrachial fascia was released proximally freeing the median nerve at the wrist. Procedure Description: Lowell was greeted in the preoperative holding area where the correct side was identified and marked. The consent was reviewed with the patient and signed. The history and physical was updated. All questions were answered. He was taken back to the operating room. The patient was placed into the supine position on the operating room table with the left arm on an arm board. A nonsterile tourniquet was placed high onto the arm. All bony prominences were well padded. Prophylactic antibiotics in the form of Cefazolin were administered. The left arm was then prepped with Chloraprep and draped in a standard fashion with stockinette and extremity drape. A timeout to confirm correct identity, side and site, procedure, allergies, anesthesia, and medical concerns was performed. The surgical site was marked in the volar wrist creases in line with the radial border of the fourth ray. This area was anesthetized with approximately 6cc of 1% Lidocaine. The limb was then exsanguinated with an Esmarch. The skin was incised with a 15 blade, approximately 1cm. The skin only was cut and the deeper tissue was dissected bluntly with a tenotomy scissor, avoiding passing nerve and venous structures. The fascia was penetrated and opened bluntly. A two-prong skin hook was placed under this proximal fascial edge. A series of hamate finders were used to identify and dilate the carpal tunnel. Synovial elevator was used to free synovial attachments to the underside of the transverse carpal ligament. My thumb was kept in the palm to tom the distal extent of the carpal tunnel and correctly position the hand. The Microaire endoscope was inserted without difficulty and without resistance. Excellent visualization showed horizontally running fibers of the transverse carpal ligament (TCL). The distal extent of the TCL was visualized and the end of the scope palpated with the thumb. The blade was elevated and withdrawn from distal to proximal. The TCL was split into two flaps. The endoscope was reinserted to confirm complete release and any remnant ligament was incised. The scope was withdrawn and the proximal aspect of the carpal tunnel was grossly inspected and appeared release with the median nerve visible. The antebrachial fascia at the level of the wrist was then freed from the overlying skin and then the underlying median nerve with blunt dissection. This was transected longitudinally for about 3cm proximal to the wrist incision. The wound was then irrigated with easy flow of irrigant distally and proximally. The incision was closed with a single 4-0 Nylon suture. The wound was dressed with Xeroform, Gauze, Kerlix and Feliz. The tourniquet was deflated with the initial dressing and held with some pressure. Blood flow returned easily to all digits with capillary refill less than 2 seconds. The patient tolerated the procedure well and was returned to the Same Day Surgery area in a stable condition suffering no known complication.
== END 2022-04-01 14:40 | disposition home or self-care (01) ==
PROVIDERS: PCP Nurse Practitioner Family; Visit Provider Student in an Organized Health Care Education/Training Program
PROC: 01N54ZZ Release Median Nerve, Percutaneous Endoscopic Approach (ICD-10-PCS; CPT 29848; principal; 2022-04-01 11:45)
DX: G56.02 Carpal tunnel syndrome, left upper limb (principal)
CPT/HCPCS: 29848; J1885; J2250; J2405

== ENCOUNTER 2022-06-02 08:58 | Day surgery (SDC) | payer BC, SELFPAY ==
--- NOTE | 2022-06-01 21:17 | PDOC.DSDIS_ITS ---
Date of service: 06/02/22 Time of Service: 11:37 Discharge Plan Disposition Patient Disposition: HOME Condition: Good Discharge Details Reason For Visit: Anorectal exam under radio dispatcher Provider: Alex Trejo Primary Care Provider: KENDALL JEFF Home Meds and New Rx's Prescriptions: New Preparation H Maximum Strength 0.25-1 % cream 1 applic [place] BID Qty: 51 0RF Rx Instructions: Apply a pea-sized amount of cream on the anus twice per day, and every 4-6 hours as needed for severe pain. Continued pravastatin 20 mg tablet 20 mg PO DAILY Rx Instructions: 02/16/22 on hold for one week coenzyme Q10 [Co Q-10] 100 mg capsule 100 mg PO DAILY apple cider vinegar 600 mg capsule 600 mg PO DAILY tadalafil [Cialis] 5 mg tablet 5 mg PO PRN vitamin B complex [B Complex-Vitamin B12] Tablet 1 tab PO DAILY saw palmto frt xtr-zinc [place] 160-15 mg capsule 1 cap PO DAILY buspirone 15 mg tablet 15 mg PO BID vitamin A 2,400 mcg capsule 2,400 mcg PO DAILY Galzin 50 mg (zinc) capsule 50 mg PO DAILY niacin (inositol niacinate) 400 mg niacin (500 mg) capsule 1 cap PO DAILY albuterol sulfate [ProAir HFA] 90 mcg/actuation HFA aerosol inhaler 2 puff inhalation Q6H PRN Fish Oil 100-160-1,000 mg capsule 1 cap PO DAILY vitamin E mixed 400 unit capsule PO lisinopril 5 MG tablet 5 mg PO DAILY ASA-calcium gyda-nny-veibaqby 500 mg Tablet 1 tab PO PRN PRN docusate sodium [Colace] 100 mg capsule 100 mg PO DAILY Qty: 30 2RF ibuprofen 600 mg tablet 600 mg PO TID Qty: 15 0RF acetaminophen 500 mg capsule 1,000 mg PO Q8H PRN PRNQty: 15 0RF Discharge Instructions Instructions: Rubber Band Ligation (DC) Additional Instructions: 1. Resume all of your medications. 2. Obtain a sitz bath from any pharmacy. Soak for 10-15 minutes in warm water, warm water mixed with half a cup of baking soda, or Epson salts after each bowel movement, or up to 5 times per day as needed for pain. 3. Okay to use tylenol and ibuprofen over the counter as needed. 5. Obtain maximum strength Preparation H from the pharmacy, and apply as directed 6. Call the office (or go directly to the emergency room after hours) if you notice any of the following: ? Develop chills (warm to touch), or if you have a thermometer ? and your temperature is above 101 ? Difficulty breathing or difficultly swallowing ? Persistent vomiting ? Any bleeding ? exceeding one tablespoon 7. Call your physician if the site where your intravenous was started becomes red, swollen, painful, and warm to touch. Referrals: Alex Trejo MD [ [facility] STAFF PHYSICIAN] - (2 weeks for routine follow up) Activity:: Activity as Tolerated Diet:: As Tolerated DS: Diagnosis Discharge Diagnosis (1) Hemorrhoids with complication: Status: Acute Asessment and Plan: 2 large internal hemorrhoids, both at the 5:00 (right posterior) position. Internal hemorrhoid banding performed.
--- NOTE | 2022-06-01 21:24 | W.PM.OP ---
Date of service: 06/02/22 Time of Service: 11:42 Operative Note Operative Note DATE OF PROCEDURE: 06/02/22 PRE-OP DIAGNOSIS: Internal hemorrhoids POST-OP DIAGNOSIS: same PROCEDURE: Rubber band ligation of internal hemorrhoids SURGEON: Alex Trejo ANESTHESIA TYPE: Local By Surgeon and MAC Refer to Anesthesia Record ESTIMATED BLOOD LOSS: 0 PATHOLOGY: none sent COMPLICATIONS: None Patient was transported to: same day Patient's condition: stable Indications: Lowell is a 57-year-old male with bleeding internal hemorrhoids Procedure Description: After the initiation of monitored anesthetic care, the patient was placed in lithotomy position, great care was taken to pad all the points of contact. I began with a digital anorectal exam. There was mild evidence of some small external hemorrhoids. There were palpable internal hemorrhoids that prolapse and reduced with manipulation. Next, using a rigid anoscope, I examined the internal anal column. The anal verge appeared normal to me. There was no evidence of any malignancy. There were 2 dominant internal hemorrhoids, both arising from the right posterior column. I performed rubber band ligation of both of these hemorrhoids. The right anterior and left lateral columns did not show any evidence of pathologic hemorrhoids. I applied a small amount of local anesthetic, and the patient was allowed awaken from anesthesia and transferred to the same-day surgery unit.
[2022-06-02 09:31] VITALS: BP 133/94; PULSE 69; RESP 16; TEMP 36.2; O2SAT 95
[2022-06-02] MEDS: Acetaminophen 500 MG TAB 1000 MG PO (09:42)
[2022-06-02] MEDS: Celecoxib 200 MG CAP PO (09:42)
[2022-06-02] MEDS: Gabapentin 300 MG CAP PO (09:43)
--- NOTE | 2022-06-02 10:16 | W.ANESPRE ---
General Info Date of Service Date Performed: 06/02/22 Height: 5 ft 3 in Weight: 80.7 kg Body Mass Index (BMI): 31.5 Surgical Procedure: Operation Date: 06/02/22 10:55 Proposed Procedure Side Surgeon p Exam Under Anesthesia Alex Trejo MD s Hemorrhoid Banding Alex Trejo MD Meds Allergies and Home Medications Allergies Allergy/AdvReac Type Severity Reaction Status Date / Time rosuvastatin [From Crestor] Allergy Intermediate Skin Rash Verified 06/02/22 09:30 amlodipine AdvReac Intermediate angina Verified 06/02/22 09:30 atorvastatin AdvReac Intermediate vomiting Verified 06/02/22 09:30 morphine AdvReac Intermediate Nausea Verified 06/02/22 09:30 codeine [Codeine] AdvReac Mild Nausea, Verified 06/02/22 09:30 upset stomach Home Medication Medication Instructions Recorded lisinopril 5 mg tablet 5 mg PO DAILY 09/30/12 apple cider vinegar 600 mg capsule 600 mg PO DAILY 02/06/19 coenzyme Q10 100 mg capsule (Co 100 mg PO DAILY 02/06/19 Q-10) pravastatin 20 mg tablet 20 mg PO DAILY 02/06/19 saw palmetto fruit extract-zinc 1 cap PO DAILY 03/26/20 picolinate 160 mg-15 mg capsule tadalafil 5 mg tablet (Cialis) 5 mg PO PRN 03/26/20 vitamin B complex (B 1 tab PO DAILY 03/26/20 Complex-Vitamin B12 tablet) docusate sodium 100 mg capsule 100 mg PO DAILY #30 caps 04/01/20 (Colace) aspirin,buffered(calcium 1 tab PO PRN PRN 02/22/22 tcyf-uiehttxgl-opliqbnf hydrx) 500 mg tablet acetaminophen 500 mg capsule 1,000 mg PO Q8H PRN PRN #15 caps 04/01/22 ibuprofen 600 mg tablet 600 mg PO TID #15 tabs 04/01/22 albuterol sulfate 90 mcg/actuation 2 puff inhalation Q6H PRN 05/26/22 aerosol inhaler (ProAir HFA) niacin 400 mg (inositol niacinate 1 cap PO DAILY 05/26/22 500 mg) capsule omega 9-npg-dil-fish oil 100 1 cap PO DAILY 05/26/22 mg-160 mg-1,000 mg capsule (Fish Oil) vitamin E mixed 400 unit capsule unit PO 05/26/22 buspirone 15 mg tablet 15 mg PO BID 05/27/22 vitamin A 2,400 mcg capsule 2,400 mcg PO DAILY 05/27/22 zinc acetate 50 mg (zinc) capsule 50 mg PO DAILY 05/27/22 (Galzin) Current Visit Medications: Current Medications Generic Name Dose Route Start Last Admin Trade Name Freq PRN Reason Stop Dose Admin Acetaminophen 1,000 mg 06/02/22 06:00 06/02/22 09:42 Acetaminophen 500 Mg Tab PO 06/02/22 16:00 1,000 mg PREOP TAYLOR Administration Acetaminophen 650 mg 06/01/22 21:25 Acetaminophen 325 Mg Tab PO Q4H PRN PRN Celecoxib 200 mg 06/02/22 06:00 06/02/22 09:42 Celecoxib 200 Mg Cap PO 06/02/22 16:00 200 mg PREOP TAYLOR Administration Gabapentin 300 mg 06/02/22 06:00 06/02/22 09:43 Gabapentin 300 Mg Cap PO 06/02/22 16:00 300 mg PREOP TAYLOR Administration Ringer's Solution 1,000 mls @ 80 mls/hr 06/02/22 06:00 IV 07/01/22 23:59 INFUSION TAYLOR Ondansetron HCl 8 mg/ Sodium 54 mls @ 200 mls/hr 06/01/22 21:25 Chloride IVPB Q6H PRN PRN IV Miscellaneous Supplies 1 each 06/02/22 06:00 Iv Access IV 07/01/22 23:59 DIRECTED TAYLOR Sodium Biphosphate/Sodium Phosphate 133 ml 06/02/22 06:00 06/02/22 09:50 Na Phosphate Enema 133 Ml Btl TN 06/02/22 16:00 1 btl DIRECTED TAYLOR Administration Sodium Chloride 0 ml 06/02/22 06:00 Normal Saline Flush 10 Ml Syr IV 07/01/22 23:59 PRN PRN Sodium Chloride 0 ml 06/02/22 06:00 Normal Saline 10 Ml Vial IJ 07/01/22 23:59 DIRECTED PRN Sterile Water 0 ml 06/02/22 06:00 Water,Injection,Sterile 10 Ml Vial IJ 07/01/22 23:59 DIRECTED PRN PFSH Active Problems Active Problems: Problem Status Onset Code Blood in stool K92.1 Sensorineural hearing loss, unilateral 06/10/17 H90.5 Rectal hemorrhage K62.5 Hemorrhoids with complication K64.8 Closed mallet fracture of distal phalanx of left little finger 05/26/21 S62.637A Left carpal tunnel syndrome G56.02 Trigger finger, left little finger M65.352 Bilateral carpal tunnel syndrome G56.03 COVID U07.1 Medical History Medical History Anxiety Erectile dysfunction Hearing loss Hyperlipidemia Hypertension Irritability Low back pain Muscle pain Plantar fasciitis Skin rash Medical History Comments:: Prostate may swell; urination issues with anesthesia Surgical History Surgical History Colonoscopy - MAC (02/26/17) History of colonoscopy (~04/01/20) History of surgery ORIF left elbow. Hardware removed 2020 Tobacco Smoking/Tobacco Use Status: Never Alcohol Alcohol Intake: never Substance Use Substance use: Never Substance use type: does not use Vital Signs and Lab Results Vital Signs Most Recent Vital Signs in EMR: Most Recent Vital Signs Temp Pulse Resp BP Pulse Ox 36.2 C L 69 16 133/94 H 95 06/02/22 09:31 06/02/22 09:31 06/02/22 09:31 06/02/22 09:31 06/02/22 09:31 Lab Results Blood Type / Crossmatch: No Data to Display Complete Blood Count: No Data to Display Complete Metabolic Panel: No Data to Display Liver Function Panel: No Data to Display Coagulation Panel: No Data to Display Cardiac Panel: No Data to Display Arterial Blood Gas: No Data to Display Venous Blood Gas: No Data to Display Pancreas Panel: No Data to Display Thyroid Panel: No Data to Display Infectious Disease: No Data to Display Blood Cultures: No Data to Display Toxicology Panel: No Data to Display Anesthesia Assessment and Plan Anesthesia History Personal History: No History of Anesthesia Complications Family History: No Family History of Anesthesia Complications Exercise Tolerance Exercise Tolerance: Metabolic Equivalents>4 Pertinent Negatives Pertinent Negatives: No Symptoms of GERD and No Major Cardiovascular Symptoms or Complaints Cardiac & Pulmonary Exam Cardiac Exam: Normal S1/S2 Heart Sounds Pulmonary Exam: Clear Bilateral Breath Sounds Implantable Cardiac Device Does patient have a Pacemaker or an ICD?: No Airway Exam Known Difficult Airway: No Mallampati Class: 1 Mouth Opening: Normal (> 3cm) Thyromental Distance: Greater than 3 cm Neck Range of Motion: Full ROM Neck Circumference: Normal Teeth Condition: Normal Dentition ASA Classification ASA Score: ASA 2 Emergency Case?: No NPO Status NPO Status: NPO Clears >2 hours, Solids >8 hours Anesthesia Plan Resuscitation Status: Full Code Anesthesia Technique: General Anesthesia Airway Planned: Natural Airway Monitors Used: Standard Monitors
[2022-06-02 10:18] VITALS: BMI 31.5
[2022-06-02] MEDS: Lactated Ringers 1,000 ML 80 ML IV (10:40)
[2022-06-02] MEDS: Bupivacaine 0.5% Pres-Free W/EPI 10 ML VIAL (11:32)
[2022-06-02 11:46] VITALS: BP 114/67; PULSE 89; RESP 16; TEMP 35.7; O2SAT 92
[2022-06-02] MEDS: traMADol 50 MG TAB 100 MG PO (12:11)
[2022-06-02 12:12] VITALS: BP 114/67; PULSE 70; RESP 16; TEMP 35.9; O2SAT 96
--- NOTE | 2022-06-02 12:12 | W.ANESPOSTOP ---
Postoperative Evaluation Date, Time and Location Date Performed: 06/02/22 Time Performed: 12:12 Patient Location: Day Surgery Unit Vital Signs Most Recent Imported Vital Signs: Most Recent Vital Signs Temp Pulse Resp BP Pulse Ox 35.7 C L 89 16 114/67 92 06/02/22 11:46 06/02/22 11:46 06/02/22 11:46 06/02/22 11:46 06/02/22 11:46 Pain Score Most Recent Pain Score: Most Recent Pain Score Pain Level 0 06/02/22 11:46 Assessment Mental Status: Awake (Alert & Oriented to Patient Baseline) Airway and Respiratory Function: Patent airway with normal (patient baseline) respiratory exam Cardiovascular Function: Hemodynamically Stable Hydration Status: Adequately Hydrated Nausea & Vomiting: No Nausea or Vomiting Pain: Pt. Denies Any Pain Peripheral Nerve Block: Patient did not receive a nerve block
[2022-06-02 12:36] VITALS: BP 130/80; PULSE 73; RESP 16; TEMP 36; O2SAT 95
== END 2022-06-02 12:55 | disposition home or self-care (01) ==
PROVIDERS: PCP Nurse Practitioner Family; Visit Provider Surgery
PROC: (CPT 46221; principal; 2022-06-02 10:45)
DX: K64.8 Other hemorrhoids (principal); I10 Essential (primary) hypertension; E78.5 Hyperlipidemia, unspecified
CPT/HCPCS: 46221; J1100; J1885; J2250; J2405; J2704

== ENCOUNTER 2022-10-19 21:07 | Outpatient (REF) | payer BC, SELFPAY ==
[2022-10-19 20:31] LABS: Anion Gap 9.6 mmol/L (3-11); BUN 29 mg/dL (7-18); CO2 25.4 mmol/L (21.0-32.0); CREATININE 1.4 mg/dL (0.70-1.30); Calcium 9.3 mg/dL (8.5-10.1); Calculated LDL 97 mg/dL (<100); Chloride 103 mmol/L (98-107); Cholesterol 170 mg/dL (<200); Estimated GFR 58.62 (mL/min/1.73m2); Glucose 110 mg/dL (74-106); HDL Cholesterol 37 mg/dL (40-60); Potassium 4.1 mmol/L (3.5-5.1); Sodium 138 mmol/L (136-145); Triglyceride 183 mg/dL (<150)
[2022-10-19 20:40] LABS: Hemoglobin A1C 5.8 % (<5.7)
[2022-10-21 10:05] LABS: HIV-1/2 Ag & Ab Screen Negative (Negative)
[2022-10-21 10:38] LABS: Hepatitis C Ab w Rflx HCV PCR Negative (Negative)
== END 2022-10-19 21:08 | disposition home or self-care (01) ==
LOC: NCHCN 21:07
PROVIDERS: PCP Nurse Practitioner Family; Visit Provider Family Medicine
DX: Z00.00 Encounter for general adult medical examination without abnormal findings (principal); E78.5 Hyperlipidemia, unspecified; I10 Essential (primary) hypertension; Z11.4 Encounter for screening for human immunodeficiency virus [HIV]; Z11.59 Encounter for screening for other viral diseases; R73.09 Other abnormal glucose
CPT/HCPCS: 80048; 80061; 86803; 87389; 83036

== ENCOUNTER 2023-04-21 20:53 | Outpatient (REF) | payer BC, SELFPAY ==
[2023-04-21 20:21] LABS: Anion Gap 12.6 mmol/L (3-11); BUN 21 mg/dL (7-18); CO2 23.4 mmol/L (21.0-32.0); CREATININE 1.1 mg/dL (0.70-1.30); Calcium 9.7 mg/dL (8.5-10.1); Chloride 105 mmol/L (98-107); Glucose 103 mg/dL (74-106); Sodium 141 mmol/L (136-145); TSH (W/Ref FT4) 0.96 uIU/mL (0.36-3.74)
[2023-04-22 20:42] LABS: PSA, Screening 6.9 ng/mL (<=3.5)
== END 2023-04-21 20:54 | disposition home or self-care (01) ==
LOC: NCHCN 20:53
PROVIDERS: PCP Nurse Practitioner Family; Visit Provider Nurse Practitioner Family
DX: I10 Essential (primary) hypertension (principal); R73.03 Prediabetes; E78.5 Hyperlipidemia, unspecified; Z12.5 Encounter for screening for malignant neoplasm of prostate; Z00.00 Encounter for general adult medical examination without abnormal findings
CPT/HCPCS: 80048; 84153; 84443

== ENCOUNTER 2023-07-06 14:06 | Outpatient (CLI) | payer BC, SELFPAY ==
[2023-07-07 00:41] LABS: PSA, Diagnostic 7.4 ng/mL (<=3.5)
== END 2023-07-06 14:07 | disposition home or self-care (01) ==
LOC: LBO 14:07
PROVIDERS: PCP Nurse Practitioner Family; Visit Provider Nurse Practitioner Gerontology
DX: R97.20 Elevated prostate specific antigen [PSA] (principal)
CPT/HCPCS: 36415; 84153

== ENCOUNTER 2023-07-08 11:54 | Emergency (ER) | payer OTHER, SELFPAY ==
--- NOTE | 2023-07-08 12:00 | DI.CT_ITS ---
Exam(s) CT CHEST/ABD/PEL W EXAM: CT CHEST/ABD/PEL W CLINICAL HISTORY: crushed by log, pain. TECHNIQUE: Imaging Protocol: Axial computed tomography images with coronal and sagittal reformatted images were created and reviewed CONTRAST MATERIAL: Intravenous: Omnipaque 350 Contrast volume:100 ml Oral: None COMPARISON: CT CT THORACIC LUMBAR SPINE REC from 07/08/2023 FINDINGS: CHEST: LUNGS: No evidence of lung contusion or pneumothorax. No pleural effusions. No significant infiltra eric nor incidental lung nodules.. MEDIASTINUM: No evidence of sternal fracture or mediastinal hematoma. No incidental adenopathy. Vis ualized thyroid unremarkable. CARDIAC: Heart size is normal. There is no pericardial effusion.Thoracic aorta appears intact. OSSEOUS: No fractures. No incidental osseous lesions.. ABDOMEN: There is no ascites. No evidence of mesenteric nor bowel wall hematoma. LIVER: No laceration. No incidental lesions. No dilated ducts. GALLBLADDER/BILIARY: No obvious gallbladder pathology. CBD is not dilated. PANCREAS: No evidence of pancreatic mass nor dilatation of the pancreatic duct. SPLEEN: Normal size. No lacerations. No lesions. Splenic and portal veins are patent. ADRENALS: There are no significant adrenal masses. KIDNEYS: There is a benign cyst in the inferior pole of the right kidney which measures 5 x 5 cm. Do es not require further workup. There is also a solitary small 2 millimeter nonobstructive calculus i n the right kidney. No renal lacerations nor subcapsular hematomas. No focal findings in the opposi te-left kidney.. ABDOMINAL AORTA: Unremarkable. LYMPH NODES: There is no retroperitoneal nor paraaortic adenopathy. ABDOMINAL WALL: Fat only containing small umbilical hernia. GI: There is no evidence of bowel obstruction.No evidence of bowel wall hematoma nor mesenteric hemat marietta. PELVIS: LYMPH NODES: There is no intrapelvic nor inguinal adenopathy. GI: No evidence of appendicitis.No evidence of sigmoid diverticulitis. URINARY BLADDER: Unremarkable REPRODUCTIVE: Prostate size upper normal. OSSEOUS: No fractures. No incidental osseous lesions of significant IMPRESSION: 1. No significant acute trauma sequelae in the chest, abdomen, and pelvis. Called by myself to ER physician. RADIATION DOSE DELIVERED: 1,299.48mGy.cm Total DLP DATA REPOSITORY: All CT scans at this facility are submitted to the National Radiology Data Registry (NRDR) Dose Index Registry (DIR) with the [employer] ([employer]). RADIATION OPTIMIZATION: All CT scans at this facility use at least one of these dose optimization te chniques: automated exposure control; mA and/or kV adjustment per patient size (includes targeted exa ms where dose is matched to clinical indication); or iterative reconstruction.
--- NOTE | 2023-07-08 12:00 | DI.CT_ITS ---
Exam(s) CT HEAD CERVICAL SPINE WO EXAM: CT HEAD CERVICAL SPINE WO CLINICAL HISTORY: crushed by log, pain. TECHNIQUE: Imaging Protocol: Axial computed tomography images with coronal and sagittal reformatted images were created and reviewed COMPARISON: No exams were available for comparison FINDINGS: BRAIN: There are no skull fractures nor fluid in the visualized paranasal sinuses. There is no evidence of intracranial hemorrhage, mass effect, or shift of midline structures. There are no extra-axial fluid collections. The ventricles are not enlarged or shifted and there is no blo od within the ventricular system nor within the basal cisterns. CERVICAL SPINE: There is no evidence of acute fracture nor listhesis. No significant prevertebral soft tissue swelli ng. There is a calcification in the soft tissues posterior to the spinous process is of C5 and C6 wh ich measures 1.2 x 0.5 by 0.4 cm. This does not have the appearance of a fracture fragment from the spinous process is. It most probably just represents chronic calcification in the supraspinous ligam ent. There is multilevel chronic degenerative disc disease with advanced disc space narrowing at C 5-6 and C6-7 levels. There are minimal facet arthropathy changes. No facet malalignment. No significant osseous lesions evident. IMPRESSION: No acute intracranial findings on this noninfused CT scan of the brain. No evidence of acute cervical spine fracture, malalignment, nor acute compromise of the cervical spin al canal. Degenerative changes as described above. Called by myself to ER physician RADIATION DOSE DELIVERED: 1,541.44mGy.cm Total DLP DATA REPOSITORY: All CT scans at this facility are submitted to the National Radiology Data Registry (NRDR) Dose Index Registry (DIR) with the [employer] ([employer]). RADIATION OPTIMIZATION: All CT scans at this facility use at least one of these dose optimization te chniques: automated exposure control; mA and/or kV adjustment per patient size (includes targeted exa ms where dose is matched to clinical indication); or iterative reconstruction.
--- NOTE | 2023-07-08 12:06 | DI.CT_ITS ---
Exam(s) CT THORACIC LUMBAR SPINE REC EXAM: CT THORACIC LUMBAR SPINE REC CLINICAL HISTORY: t and l spine, crush injury TECHNIQUE: COMPARISON: CT ABD PELVIS WITH CONTRAST from 01/07/[address] CHEST/ABD/PEL W from 07/08/2023 FINDINGS: THORACIC SPINAL COLUMN: No evidence of fractures, listhesis, nor facet malalignment. No acute compro mise of the spinal canal. LUMBOSACRAL SPINAL COLUMN: No evidence of fractures nor listhesis nor prominent disc space narrowing. There is unilateral pars defect noted at right side L5 level, not associated with listhesis. No fa cet joint malalignment. No acute compromise of the lumbar spinal canal. IMPRESSION: No acute fractures evident in the thoracic and lumbar spinal columns. Incidentally noted is a unilat eral pars defect at L5 level. There is no associated listhesis.
[2023-07-08] MEDS: Normal Saline 1,000 ML 1000 ML IV (12:18)
[2023-07-08] MEDS: HYDROmorphone 2 MG/ML SYR 1 MG IVP (12:18)
--- NOTE | 2023-07-08 12:23 | W.ED.GENAD ---
HPI General Stated Complaint: Trauma VON: 2 Date/Time Provider Initiated Documentation: 07/08/23 11:55. Limitations to Documentation: no limitations. Information obtained by: patient. History of Present Illness right sided rib and shoulder pain moderate aching hour(s) (1) constant No relieving factors improve symptom(s), No exacerbating factors reported no other symptoms. none Related Data Home Medications Medication Instructions Recorded Confirmed lisinopril 5 mg tablet 5 mg PO DAILY 09/30/12 07/08/23 apple cider vinegar 600 mg capsule 600 mg PO DAILY 02/06/19 07/08/23 coenzyme Q10 100 mg capsule (Co 100 mg PO DAILY 02/06/19 07/08/23 Q-10) pravastatin 20 mg tablet 20 mg PO DAILY 02/06/19 07/08/23 saw palmetto fruit extract-zinc 1 cap PO DAILY 03/26/20 07/08/23 picolinate 160 mg-15 mg capsule tadalafil 5 mg tablet (Cialis) 5 mg PO PRN 03/26/20 07/08/23 vitamin B complex (B 1 tab PO DAILY 03/26/20 07/08/23 Complex-Vitamin B12 tablet) acetaminophen 500 mg capsule 1,000 mg (2 x 500 mg) PO Q8H PRN 04/01/22 07/08/23 PRN #15 caps albuterol sulfate 90 mcg/actuation 2 puff inhalation Q6H PRN 05/26/22 07/08/23 aerosol inhaler (ProAir HFA) niacin 400 mg (inositol niacinate 1 cap PO DAILY 05/26/22 07/08/23 500 mg) capsule omega 4-wtz-vwe-fish oil 100 1 cap PO DAILY 05/26/22 07/08/23 mg-160 mg-1,000 mg capsule (Fish Oil) vitamin E mixed 400 unit capsule 1 unit PO DAILY 05/26/22 07/08/23 buspirone 15 mg tablet 15 mg PO BID 05/27/22 07/08/23 vitamin A 2,400 mcg capsule 2,400 mcg PO DAILY 05/27/22 07/08/23 zinc acetate 50 mg (zinc) capsule 50 mg PO DAILY 05/27/22 07/08/23 (Galzin) phenylephrine 0.25 %-pramoxine 1 1 applic KS BID hemorrhoids #51 06/02/22 07/08/23 %-glycerin-wh.petrolatum rectal grams cream (Preparation H Maximum Strength) ascorbic acid (vitamin C) 500 mg 500 mg PO DAILY 06/15/22 07/08/23 tablet Previous Rx's Medication Instructions Recorded acetaminophen 500 mg capsule 1,000 mg (2 x 500 mg) PO Q8H PRN 04/01/22 PRN #15 caps phenylephrine 0.25 %-pramoxine 1 1 applic KS BID hemorrhoids #51 06/02/22 %-glycerin-wh.petrolatum rectal grams cream (Preparation H Maximum Strength) Allergies Allergy/AdvReac Type Severity Reaction Status Date / Time rosuvastatin [From Crestor] Allergy Intermediate Skin Rash Verified 07/08/23 12:06 amlodipine AdvReac Intermediate angina Verified 07/08/23 12:06 atorvastatin AdvReac Intermediate vomiting Verified 07/08/23 12:06 morphine AdvReac Intermediate Nausea Verified 07/08/23 12:06 codeine [Codeine] AdvReac Mild Nausea, Verified 07/08/23 12:06 upset stomach Review of Systems All systems reviewed & are unremarkable except as noted in HPI and below Constitutional Constitutional: Denies chills, Denies fever(s) and Denies weakness Eyes Eyes: Denies loss of vision Cardiovascular Cardiovascular: Denies dyspnea Respiratory Respiratory: Denies cough and Denies dyspnea Gastrointestinal Gastrointestinal: Denies vomiting Musculoskeletal Musculoskeletal: Denies joint swelling Integumentary/Breasts Skin/Breast: Denies rash Neurologic Neurologic: Denies loss of vision and Denies weakness Endocrine Endocrine: Denies cold intolerance PFSH All Active Problems (Updated 07/08/23 @ 13:42 by Lowell Ochoa MD) Blunt trauma of multiple sites of trunk (Acute) Diverticular disease of colon (Acute) Hearing loss, bilateral (Acute) Hemorrhoid (Acute) Seasonal allergies (Acute) CTS (carpal tunnel syndrome) (Acute) Elevated blood sugar (Acute) Prediabetes (Acute) Weight loss (Acute) Elevated PSA (Acute) Sensorineural hearing loss, bilateral (Acute) Blood in stool (Acute) Sensorineural hearing loss, unilateral (Acute 06/10/17) Rectal hemorrhage (Acute) Hemorrhoids with complication (Acute) Closed mallet fracture of distal phalanx of left little finger (Acute 05/26/21) Left carpal tunnel syndrome (Acute) s/p ECTR DOS: 04/01/22 Trigger finger, left little finger (Acute) Bilateral carpal tunnel syndrome (Acute) COVID (Acute) Medical History Anxiety Erectile dysfunction Hearing loss Hyperlipidemia Hypertension Irritability Low back pain Muscle pain Plantar fasciitis Skin rash Surgical History Colonoscopy - MAC (02/26/17) History of colonoscopy (~04/01/20) History of surgery ORIF left elbow. Hardware removed 2020 Family History Mother Colon cancer Grandfather Colon cancer Social History Smoking/Tobacco Use Status: Never Smoking risk assessment performed?: Yes Alcohol Intake: never Drug use: Never Substance use type: does not use Current gender identity: male Do you feel safe at home: Yes Do you feel safe in your relationship?: Yes Additional Social history: lives alone Exam Const General: no acute distress Orientation: alert HENMT Head: normal to inspection Ears: external ears normal General nose exam: external nose normal Mouth: moist mucous membranes Eyes General: appearance normal, both eyes and all related structures Neck Neck: normal visual inspection Chest Chest: localized rib tenderness with anteroposterior compression Resp Effort & Inspection: normal respiratory effort and able to speak in complete sentences Auscultation: clear to auscultation bilaterally Cardio Jugular venous pressure: no JVD Rate: regular rate Heart Sounds: no murmurs GI Palpation: soft and tender Skin General skin exam: no rashes or lesions noted Neuro General: patient alert and patient oriented x3 Extrem General: normal to inspection Psych Mental Status: mental status grossly normal Course Vital Signs Vital signs: Respiratory Effort Short of Breath 07/08/23 12:05 Pain Level 10 07/08/23 12:18 Medical Decision Making 58 yo male was working when a log moved and pinnned 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 HE is complaining of right sided upper back, right lateral chest and oblique pain. Denies vision changes, dyspnea, vomiting. HE has tenderness to the right scapula, right lateral 4-8 ribs in mid axillary line and right oqlique area pain of his abdomen, abdomen otherwise soft. Full rom of his legs with no pain, will proceed with ct head/c spine, chest/abd/pelvis with recons of t and l spine pt stable, imaging shows no acute findings, no midline c spine pain will ful rom so c collar removed. HE has tenderness over the lateral chest in the mid axillary line so suspect rib contusion. HE is stable for d/c, advised to f/u with pcp and return precautions given Differential Diagnosis Differential Diagnosis: fracture, contusion, traumatic intraabdominal injury Imaging Data Radiologic Study: Attestation: I personally reviewed and interpreted this imaging study as follows: Imaging: CT Scan Radiologist's impression: Patient Name: Lowell Hartley Unit #: [id number] Loc: ER Ordering Provider: Lowell Ochoa M.D. Status: REG ER Primary Care Provider: KENDALL JEFF NP Date of Exam: 07/08/23 Sex: M : 1965 Age: 58 Exam(s) a CT:CT chest/abd/pel w Exam(s) CT CHEST/ABD/PEL W EXAM: CT CHEST/ABD/PEL W CLINICAL HISTORY: crushed by log, pain. TECHNIQUE: Imaging Protocol: Axial computed tomography images with coronal and sagittal reformatted images were created and reviewed CONTRAST MATERIAL: Intravenous: Omnipaque 350 Contrast volume:100 ml Oral: None COMPARISON: CT CT THORACIC LUMBAR SPINE REC from 07/08/2023 FINDINGS: CHEST: LUNGS: No evidence of lung contusion or pneumothorax. No pleural effusions. No significant infiltrates nor incidental lung nodules.. MEDIASTINUM: No evidence of sternal fracture or mediastinal hematoma. No incidental adenopathy. Visualized thyroid unremarkable. CARDIAC: Heart size is normal. There is no pericardial effusion.Thoracic aorta appears intact. OSSEOUS: No fractures. No incidental osseous lesions.. ABDOMEN: There is no ascites. No evidence of mesenteric nor bowel wall hematoma. LIVER: No laceration. No incidental lesions. No dilated ducts. GALLBLADDER/BILIARY: No obvious gallbladder pathology. CBD is not dilated. PANCREAS: No evidence of pancreatic mass nor dilatation of the pancreatic duct. SPLEEN: Normal size. No lacerations. No lesions. Splenic and portal veins are patent. ADRENALS: There are no significant adrenal masses. KIDNEYS: There is a benign cyst in the inferior pole of the right kidney which measures 5 x 5 cm. Does not require further workup. There is also a solitary small 2 millimeter nonobstructive calculus in the right kidney. No renal lacerations nor subcapsular hematomas. No focal findings in the opposite-left kidney.. ABDOMINAL AORTA: Unremarkable. LYMPH NODES: There is no retroperitoneal nor paraaortic adenopathy. ABDOMINAL WALL: Fat only containing small umbilical hernia. GI: There is no evidence of bowel obstruction.No evidence of bowel wall hematoma nor mesenteric hematoma. PELVIS: LYMPH NODES: There is no intrapelvic nor inguinal adenopathy. GI: No evidence of appendicitis.No evidence of sigmoid diverticulitis. URINARY BLADDER: Unremarkable REPRODUCTIVE: Prostate size upper normal. OSSEOUS: No fractures. No incidental osseous lesions of significant IMPRESSION: 1. No significant acute trauma sequelae in the chest, abdomen, and pelvis. Radiologic Study #2: Attestation: I personally reviewed and interpreted this imaging study as follows: Imaging: CT Scan Radiologist's impression: no acute findings head and c spine ct Lab Data Lab results reviewed: Yes I reviewed the patient's lab results. Quality:SDOH Health Related Social Needs: No Data to Display Discharge Plan Disposition Patient Disposition: Home Condition: Stable Discharge Details Clinical Impression: Blunt trauma of multiple sites of trunk Primary Care Provider: KENDALL JEFF ED Provider: Lowell Ochoa Home Meds and New Rx's Prescriptions: Continued pravastatin 20 mg tablet 20 mg PO DAILY Rx Instructions: 02/16/22 on hold for one week coenzyme Q10 [Co Q-10] 100 mg capsule 100 mg PO DAILY apple cider vinegar 600 mg capsule 600 mg PO DAILY tadalafil [Cialis] 5 mg tablet 5 mg PO PRN vitamin B complex [B Complex-Vitamin B12] Tablet 1 tab PO DAILY saw palmto frt xtr-zinc [place] 160-15 mg capsule 1 cap PO DAILY ascorbic acid (vitamin C) 500 mg tablet 500 mg PO DAILY buspirone 15 mg tablet 15 mg PO BID vitamin A 2,400 mcg capsule 2,400 mcg PO DAILY Galzin 50 mg (zinc) capsule 50 mg PO DAILY niacin (inositol niacinate) 400 mg niacin (500 mg) capsule 1 cap PO DAILY albuterol sulfate [ProAir HFA] 90 mcg/actuation HFA aerosol inhaler 2 puff inhalation Q6H PRN Fish Oil 100-160-1,000 mg capsule 1 cap PO DAILY vitamin E mixed 400 unit capsule 1 unit PO DAILY lisinopril 5 MG tablet 5 mg PO DAILY Preparation H Maximum Strength 0.25-1 % cream 1 applic KS BID Qty: 51 0RF Rx Instructions: Apply a pea-sized amount of cream on the anus twice per day, and every 4-6 hours as needed for severe pain. acetaminophen 500 mg capsule 1,000 mg PO Q8H PRN PRNQty: 15 0RF Discharge Instructions Additional Instructions: Your imaging did not show any concerning findings or broken bones you will likely be sore for several days if not better within a week follow up with your primary care provider return to the emergency department for severe worsening pain or new symptoms such as persistent vomiting Stand Alone Forms: Work Release
[2023-07-08 12:24] LABS: Abs Immature Grans 0.03 10^3/uL (0.0-0.06); Absolute Basophil Count 0.04 10^3/uL (0.0-0.2); Absolute Eosinophil Count 0.11 10^3/uL (0.0-0.7); Absolute Lymphocyte Count 1.91 10^3/uL (1.2-3.4); Absolute Monocyte Count 0.77 10^3/uL (0.1-0.8); Absolute Neutrophil Count 4.67 10^3/uL (1.2-6.7); Basophils % 0.5; Eosinophils % 1.5; HCT 43.7 % (40.0-50.0); Immature Grans % 0.4; Lymphocytes % 25.4; MCH 33.3 pg (27.0-33.0); MCHC 36.6 % (32.0-36.0); MCV 91 fL (80-95); MPV 9.2 fL (8.0-11.0); Monocytes % 10.2; Platelet Count 248 10^3/uL (130-400); RBC 4.81 10^6/uL (4.36-5.78); RDW 11.7 % (11.8-14.1); RDW-SD 39.2 fL; WBC 7.53 10^3/uL (4.4-10.8)
[2023-07-08 12:38] LABS: PTT Activated 23.6 sec (23.6-32.8); Prothrombin Time 10.4 sec (9.1-11.1)
[2023-07-08] MEDS: Normal Saline - Diluent 50 ML VIAL IJ (12:38)
[2023-07-08 12:40] LABS: ALT 34 U/L (16-63); AST 17 U/L (15-37); Albumin 4.1 g/dL (3.4-5.0); Alkaline Phosphatase 52 U/L (46-116); Anion Gap 12.7 mmol/L (3-11); BUN 17 mg/dL (7-18); Bilirubin, Total 0.5 mg/dL (0.2-1.0); CO2 22.3 mmol/L (21.0-32.0); CREATININE 1.1 mg/dL (0.70-1.30); Chloride 101 mmol/L (98-107); Estimated GFR 77.81 (mL/min/1.73m2); Glucose 151 mg/dL (74-106); Magnesium 2.1 mg/dL (1.8-2.4); Potassium 3.4 mmol/L (3.5-5.1); Sodium 136 mmol/L (136-145); Total Protein 7.6 g/dL (6.4-8.2)
[2023-07-08] MEDS: Omnipaque 350 MG/ML 100 ML BTL IJ (12:40)
[2023-07-08 13:27] VITALS: BP 115/77; PULSE 74; RESP 15; O2SAT 91
== END 2023-07-08 14:04 | disposition home or self-care (01) ==
PROVIDERS: Emergency Provider Emergency Medicine; PCP Nurse Practitioner Family
DX: S20.211A Contusion of right front wall of thorax, initial encounter (principal); S30.1XXA Contusion of abdominal wall, initial encounter; W31.89XA Contact with other specified machinery, initial encounter; Y93.89 Activity, other specified
CPT/HCPCS: 36415; 74177; 80053; 86850; 86900; 86901; 96361; 96374; 99285; 70450; 71260; 72125; 83735; 85025; 85610; 85730; 99284; J1170; J3490

== ENCOUNTER 2023-09-07 09:18 | Outpatient (REF) | payer BC, SELFPAY ==
--- NOTE | 2023-09-07 09:20 | PROST_PTH ---
PATIENT: Lowell Hartley LOC: [facility] U#:[id number] AGE/SX: 58/M ROOM: RE09/07/[address]: Memo Singh MD : 1965 BED: DIS: 09/07/2023 SPEC #: [id number] RECD: 09/07/23 12:42 STATUS: KORY RE #: [id number] ADI: 09/07/23 09:[address]: Memo Singh DEPT: Surgical Specimen RECD BY: Gisela Choudhury ENTERED: 09/07/23 12:44 SP TYPE: PROST OTHR DR: KENDALL JEFF, CHRIS Tissues: 1 - PROSTATE NEEDLE BIOPSY 2 - PROSTATE NEEDLE BIOPSY 3 - PROSTATE NEEDLE BIOPSY 4 - PROSTATE NEEDLE BIOPSY 5 - PROSTATE NEEDLE BIOPSY 6 - PROSTATE NEEDLE BIOPSY 7 - PROSTATE NEEDLE BIOPSY 8 - PROSTATE NEEDLE BIOPSY 9 - PROSTATE NEEDLE BIOPSY 10 - PROSTATE NEEDLE BIOPSY 11 - PROSTATE NEEDLE BIOPSY 12 - PROSTATE NEEDLE BIOPSY Procedures: GROSS AND MICRO LEVEL 4 Comments: [id number]
== END 2023-09-07 09:19 | disposition home or self-care (01) ==
LOC: LBN 09:18
PROVIDERS: PCP Nurse Practitioner Family; Visit Provider Urology
DX: C61 Malignant neoplasm of prostate (principal)
CPT/HCPCS: 88305

== ENCOUNTER → 2023-10-12 01:56 | Outpatient (CLI) | payer BC, SELFPAY ==
--- NOTE | 2023-10-12 07:45 | DI.NM_ITS ---
Exam(s) NM BONE SCAN WHOLE BODY GRP EXAM: AL BONE SCAN WHOLE BODY GRP CLINICAL HISTORY: baseline,new dx prostate ca,c61. TECHNIQUE: Injected Dose: 25 mCi Tc-99m MDP Delayed Images: 2-3 hours. COMPARISON: CT CT CHEST/ABD/PEL W from 07/08/2023 FINDINGS: Symmetric axial uptake. Bilateral renal excretion is identified. No focal area of intense suspicious uptake is seen. Single focus of increased activity in the right anterior rib, likely posttraumatic. Mildly increased activity in the right shoulder, likely degenerative. IMPRESSION: 1. No evidence of metastatic disease. DATA REPOSITORY:
== END ==
PROVIDERS: PCP Nurse Practitioner Family; Visit Provider Urology
DX: C61 Malignant neoplasm of prostate (principal)
CPT/HCPCS: 78306

== ENCOUNTER 2024-01-13 21:32 | Emergency (ER) | payer BC, SELFPAY ==
[2024-01-13 21:35] VITALS: BP 135/90; PULSE 82; RESP 16; TEMP 36.9; O2SAT 97
[2024-01-13] MEDS: Clindamycin 150 MG CAP 450 MG PO (22:26)
--- NOTE | 2024-01-13 22:27 | ED.GENADUL_ITS ---
Discharge Plan Disposition Patient Disposition: Home Condition: Good Discharge Details Clinical Impression: Abscess Primary Care Provider: KENDALL JEFF ED Provider: Shakira Blair Home Meds and New Rx's Prescriptions: New clindamycin HCl 150 mg capsule 450 mg PO TID 7 Days Qty: 63 0RF Continued pravastatin 20 mg tablet 20 mg PO DAILY Rx Instructions: 02/16/22 on hold for one week coenzyme Q10 [Co Q-10] 100 mg capsule 100 mg PO DAILY apple cider vinegar 600 mg capsule 600 mg PO DAILY tadalafil [Cialis] 5 mg tablet 5 mg PO PRN vitamin B complex [B Complex-Vitamin B12] Tablet 1 tab PO DAILY saw palmto frt xtr-zinc [place] 160-15 mg capsule 1 cap PO DAILY ascorbic acid (vitamin C) 500 mg tablet 500 mg PO DAILY buspirone 15 mg tablet 15 mg PO BID vitamin A 2,400 mcg capsule 2,400 mcg PO DAILY Galzin 50 mg (zinc) capsule 50 mg PO DAILY niacin (inositol niacinate) 400 mg niacin (500 mg) capsule 1 cap PO DAILY albuterol sulfate [ProAir HFA] 90 mcg/actuation HFA aerosol inhaler 2 puff inhalation Q6H PRN Fish Oil 100-160-1,000 mg capsule 1 cap PO DAILY vitamin E mixed 400 unit capsule 1 unit PO DAILY lisinopril 5 MG tablet 5 mg PO DAILY acetaminophen 500 mg capsule 1,000 mg PO Q8H PRN PRNQty: 15 0RF Discharge Instructions Instructions: Abscess Incision and Drainage ED Additional Instructions: Please follow-up with your primary care provider if your abscess is not looking significantly better by Wednesday. Please take the antibiotics as prescribed. I recommend that you take these with a probiotic yogurt such as Activia to prevent antibiotic associated diarrhea. Keep your wound clean and dry. Wash daily with antibacterial soap and water. Apply a warm compress for 15 to 20 minutes at a time 4-5 times a day. Cover with a nonstick bandage. You may use ibuprofen 600 mg every 8 hours as needed for discomfort. Return to care if you develop new fever/chills, worsening redness/swelling increasing pain, or if you are very worried and need to be rechecked again immediately HPI General Date/Time Provider Initiated Documentation: 01/13/24 21:37 . HPI Narrative: Lowell is a 58-year-old male with history of prostate cancer who presents to the emergency department today for evaluation of a rash and swelling under his right armpit. He reports that started couple days ago, initially started as a pimple and has been growing since then. He became concerned when the lesion developed a surrounding rash. He denies fever/chills, arm pain, numbness/tingling to arm, pus drainage, history of abscesses, history of MRSA, history of IV drug use. Physical exam remarkable for approximately 1 cm fluctuant nodule consistent with abscess located in right axilla with approximately 6 cm diameter area of erythema surrounding. No crusting or drainage noted. Full painless range of motion to arm. No palpable axillary lymph nodes. History and presentation consistent with uncomplicated abscess with surrounding cellulitis. No red flags concerning for serious extension of infection or systemic symptoms requiring diagnostic imaging or bloodwork at this time. Incision and drainage performed, 1 cm incision made after local anesthetic with 5 cc 2% lidocaine with epi instilled after local antisepsis with chloraprep. Patient tolerated procedure well. A small amount of pus was able to be expressed, loculations broken up with forceps. Patient tolerated procedure well. Dressing applied by nurse. Will treat with clindamycin 450 mg x 7 days. Reviewed wound care and discharge instructions with patient, including indications for return to care. He is agreeable with plan of care. Related Data Home Medications ?Medication ?Instructions ?Recorded ?Confirmed lisinopril 5 mg tablet 5 mg PO DAILY 09/30/12 01/13/24 apple cider vinegar 600 mg capsule 600 mg PO DAILY 02/06/19 01/13/24 coenzyme Q10 100 mg capsule (Co 100 mg PO DAILY 02/06/19 01/13/24 Q-10) pravastatin 20 mg tablet 20 mg PO DAILY 02/06/19 01/13/24 saw palmetto fruit extract-zinc 1 cap PO DAILY 03/26/20 01/13/24 picolinate 160 mg-15 mg capsule tadalafil 5 mg tablet (Cialis) 5 mg PO PRN 03/26/20 01/13/24 vitamin B complex (B 1 tab PO DAILY 03/26/20 01/13/24 Complex-Vitamin B12 tablet) acetaminophen 500 mg capsule 1,000 mg (2 x 500 mg) PO Q8H PRN 04/01/22 01/13/24 PRN #15 caps albuterol sulfate 90 mcg/actuation 2 puff inhalation Q6H PRN 05/26/22 01/13/24 aerosol inhaler (ProAir HFA) niacin 400 mg (inositol niacinate 1 cap PO DAILY 05/26/22 01/13/24 500 mg) capsule omega 3-far-qiy-fish oil 100 1 cap PO DAILY 05/26/22 01/13/24 mg-160 mg-1,000 mg capsule (Fish Oil) vitamin E mixed 400 unit capsule 1 unit PO DAILY 05/26/22 01/13/24 buspirone 15 mg tablet 15 mg PO BID 05/27/22 01/13/24 vitamin A 2,400 mcg capsule 2,400 mcg PO DAILY 05/27/22 01/13/24 zinc acetate 50 mg (zinc) capsule 50 mg PO DAILY 05/27/22 01/13/24 (Galzin) ascorbic acid (vitamin C) 500 mg 500 mg PO DAILY 06/15/22 01/13/24 tablet clindamycin HCl 150 mg capsule 450 mg (3 x 150 mg) PO TID 7 days 01/13/24 #63 caps Previous Rx's ?Medication ?Instructions ?Recorded acetaminophen 500 mg capsule 1,000 mg (2 x 500 mg) PO Q8H PRN 04/01/22 PRN #15 caps clindamycin HCl 150 mg capsule 450 mg (3 x 150 mg) PO TID 7 days 01/13/24 #63 caps Allergies Allergy/AdvReac Type Severity Reaction Status Date / Time rosuvastatin (From Crestor) Allergy Intermediate Skin Rash Verified 01/13/24 21:38 amlodipine AdvReac Intermediate angina Verified 01/13/24 21:38 atorvastatin AdvReac Intermediate vomiting Verified 01/13/24 21:38 morphine AdvReac Intermediate Nausea Verified 01/13/24 21:38 codeine (Codeine) AdvReac Mild Nausea, Verified 01/13/24 21:38 upset stomach General Stated Complaint: RashLesion VON: 3 Review of Systems Narrative: see HPI Exam Const General: cooperative, healthy appearing, comfortable and no acute distress Nutritional Appearance: average body habitus Skin Lesions: other (abscess, approx 1 cm diameter to R axilla) Rashes: rashes noted (6 cm diameter area of erythema surrounding abscess) Extrem Right upper extremity: normal to inspection and full ROM Course Vital Signs Vital signs: Vital Signs Temperature 36.9 C 01/13/24 21:35 Pulse 82 01/13/24 21:35 Respiratory Rate 16 01/13/24 21:35 Blood Pressure 135/90 01/13/24 21:35 Pulse Oximetry 97 01/13/24 21:35 Temperature 36.9 C 01/13/24 21:35 Temperature Source Temporal Artery Scan 01/13/24 21:35 Pulse 82 01/13/24 21:35 Respiratory Rate 16 01/13/24 21:35 Respiratory Effort Normal, Non-Labored 01/13/24 21:39 Blood Pressure 135/90 01/13/24 21:35 Blood Pressure Position Sitting 01/13/24 21:35 Pulse Oximetry 97 01/13/24 21:35 Oxygen Delivery Method Room Air 01/13/24 21:35 Oxygen Flow Rate 0 01/13/24 21:35 Pain Level 10 01/13/24 21:35 Medical Decision Making Quality:SDOH Health Related Social Needs: No Data to Display PFSH All Active Problems (Updated 01/13/24 @ 22:26 by Shakira Davila) Abscess (Acute) Prostate cancer (Chronic) Diverticular disease of colon (Acute) Hearing loss, bilateral (Acute) Hemorrhoid (Acute) Seasonal allergies (Acute) CTS (carpal tunnel syndrome) (Acute) Elevated blood sugar (Acute) Prediabetes (Acute) Weight loss (Acute) Sensorineural hearing loss, bilateral (Acute) Blood in stool (Acute) Sensorineural hearing loss, unilateral (Acute 06/10/17) Rectal hemorrhage (Acute) Hemorrhoids with complication (Acute) Closed mallet fracture of distal phalanx of left little finger (Acute 05/26/21) Left carpal tunnel syndrome (Acute) s/p ECTR DOS: 04/01/22 Trigger finger, left little finger (Acute) Bilateral carpal tunnel syndrome (Acute) COVID (Acute) Medical History (Updated 01/13/24 @ 22:26 by Shakira Davila) Elevated PSA Low back pain Erectile dysfunction Hypertension Plantar fasciitis Irritability Hyperlipidemia Skin rash Anxiety Hearing loss Muscle pain Surgical History History of surgery ORIF left elbow. Hardware removed 2020 History of colonoscopy (~04/01/20) Colonoscopy - MAC (02/26/17) Family History Mother Colon cancer Grandfather Colon cancer Social History Smoking/Tobacco Use Status: Never Smoking risk assessment performed?: Yes Alcohol Intake: never Drug use: Never Substance use type: does not use Housing: house Current gender identity: male Do you feel safe at home: Yes Do you feel safe in your relationship?: Yes Additional Social history: lives alone
== END 2024-01-13 22:34 | disposition home or self-care (01) ==
PROVIDERS: Emergency Provider Nurse Practitioner Family; PCP Nurse Practitioner Family
DX: L02.411 Cutaneous abscess of right axilla (principal); I10 Essential (primary) hypertension
CPT/HCPCS: 10060; 99283

== ENCOUNTER 2024-02-07 02:19 | Outpatient (CLI) | payer BC, SELFPAY ==
--- NOTE | 2024-02-07 | DI.RAD_ITS ---
Exam(s) XR CHEST 2V PA LATERAL EXAM: XR CHEST 2V PA LATERAL CLINICAL HISTORY: CANCER OF PROSTATE, C61. TECHNIQUE: 2D digital imaging was performed. COMPARISON: CR,XR XR PORTABLE CHEST AP from 02/22/2022 FINDINGS: 2 views: Heart size is normal. The mediastinum is not widened. Lungs are clear. No infiltrates nor pleural effusions. No nodules evident. No significant osseous findings. IMPRESSION: No acute pulmonary findings. DATA REPOSITORY: RADIATION DOSE DELIVERED:
== END 2024-02-07 02:39 ==
LOC: DI 02:19
PROVIDERS: PCP Nurse Practitioner Family; Visit Provider Surgery
DX: C61 Malignant neoplasm of prostate (principal)
CPT/HCPCS: 71046

== ENCOUNTER 2024-02-07 03:31 | Outpatient (CLI) | payer BC, SELFPAY ==
[2024-02-07 16:53] LABS: Bilirubin Negative (Negative); Blood Negative (Negative); Clarity Clear (Clear); Glucose Negative (Negative); Ketones Negative (Negative); Leukocyte Esterase Negative (Negative); Nitrite Negative (Negative); Specific Gravity 1.015 (1.005-1.025); Urobilinogen 0.2 mg/dL (Up to 0.2)
== END 2024-02-07 03:32 | disposition home or self-care (01) ==
LOC: LBO 03:32
PROVIDERS: PCP Nurse Practitioner Family; Visit Provider Surgery
DX: C61 Malignant neoplasm of prostate (principal)
CPT/HCPCS: 81003

== ENCOUNTER 2024-07-23 20:57 | Emergency (ER) | payer BC, SELFPAY ==
[2024-07-23] VITALS (17 sets, daily range): BP systolic 125–155; BP diastolic 82–114; PULSE 89–103; RESP 2–27; TEMP 35.9; O2SAT 90–99
--- NOTE | 2024-07-23 21:00 | RT.EKG_ITS ---
APPROVED REPORT Exam: Resting ECG Reason for Exam: short of breath Patient Location: E HR:97 bpm ECG Measurements Heart Rate 97 AXIS SC 141 P 39 QRSd 89 QRS 14 QT 334 T 12 QTc 426 Conclusion Sinus rhythm. 97 normal axis no stemi
--- NOTE | 2024-07-23 21:04 | ED.GENADUL_ITS ---
Discharge Plan Disposition Patient Disposition: Home Condition: Good Discharge Details Clinical Impression: Community acquired pneumonia, Upper respiratory virus Primary Care Provider: KENDALL JEFF ED Provider: Shakira Blair Home Meds and New Rx's Prescriptions: New Amox. 875/Clav. 125, 2 Tabs/Bt [Augmentin 875-125, 2 Tabs/Btl] 1 tab PO DISPENSE 4 Days Qty: 8 0RF azithromycin 250 mg tablet 250 mg PO DAILY 4 Days Qty: 4 0RF Rx Instructions: start on day 2 of therapy amoxicillin-pot clavulanate 875-125 mg tablet 1 tab PO BID Qty: 8 0RF No Action pravastatin 20 mg tablet 20 mg PO DAILY Rx Instructions: 02/16/22 on hold for one week coenzyme Q10 [Co Q-10] 100 mg capsule 100 mg PO DAILY apple cider vinegar 600 mg capsule 600 mg PO DAILY vitamin B complex [B Complex-Vitamin B12] Tablet 1 tab PO DAILY ascorbic acid (vitamin C) 500 mg tablet 500 mg PO DAILY buspirone 15 mg tablet 15 mg PO BID vitamin A 2,400 mcg capsule 2,400 mcg PO DAILY Galzin 50 mg (zinc) capsule 50 mg PO DAILY albuterol sulfate [ProAir HFA] 90 mcg/actuation HFA aerosol inhaler 2 puff inhalation Q6H PRN Fish Oil 100-160-1,000 mg capsule 1 cap PO DAILY vitamin E mixed 400 unit capsule 1 unit PO DAILY lisinopril 5 MG tablet 5 mg PO DAILY acetaminophen 500 mg capsule 1,000 mg PO Q8H PRN PRNQty: 15 0RF Discharge Instructions Instructions: Community-acquired pneumonia in adults Additional Instructions: Please call your primary care provider first thing in the morning to schedule follow-up appointment within the next 3 to 4 days for reassessment. Your chest x-ray was concerning for developing pneumonia. You are being prescribed 2 antibiotics to treat this. Please take both for the full course as prescribed. I recommend that you take these with probiotics such as Activia yogurt or [id number] probiotic supplement such as Culturelle or align. You may continue to use Vicks VapoRub and your albuterol inhaler 2 puffs every 4-6 hours as needed. Please stay well hydrated, drinking plenty of fluids throughout the day. You may use ibuprofen 600 mg every 8 hours and tylenol 650 mg every 8 hours as needed for fever /chills or body aches. Get plenty of rest. Practice good handwashing and wear a mask in public if you are coughing to avoid spreading illness to others. I recommend that you use a humidifier at bedside to help increase the moisture in the air. Saline nasal spray may also be helpful to help prevent nosebleeds and to loosen the mucus in your nose/sinuses. Steamy showers are also helpful. Return to emergency care if you develop difficulty breathing, chest pains, worsening of cough or fever after initial improvement, or if you are very worried and need to be rechecked again immediately. Referrals: KENDALL JEFF [employer] [Primary Care Provider] - [facility] General Date/Time Provider Initiated Documentation: 07/23/24 21:03 . [facility] Narrative: Lowell is a 59 year old male who presents to the emergency department today for evaluation of cough. He reports he started with URI sx 10 days ago. He reports congestion/runny nose, post nasal drip, headache, chills, sore throat, dry cough, and wheeze. Denies recorded fevers, chest pain, shortness of breath, nausea/vomiting, change in p.o. intake, abdominal pain, change in bowel or bladder function. He reports that he has had bronchitis in the past and has used an inhaler for this, has used his inhaler 2 puffs twice a day without any improvement of symptoms. Past medical history is significant for prostate cancer currently in remission, HTN, HLD, diverticular disease of colon and prediabetes. Denies ETOH use, tobacco, or cannabis use. Physical exam reassuring. Frequent dry cough, faint end expiratory wheezes noted in all lung call[place]. Normal heart sounds. Moist mucous membranes, no tonsillar hypertrophy or erythema/exudate. No submandibular or cervical lymphadenopathy. D/dx includes but is not limited to: PNA, viral illness such as RSV, flu, or CO VID-19, bronchitis I independently interpreted the following tests: COVID/flu/RSV negative. CBC and BMP reassuring, no acute abnormalities. EKG reassuring, NSR rate 97. No changes c/w acute ischemia, normal intervals. Chest x-ray notable for faint upper lobe airspace opacity that may represent developing pneumonia per radiologist. Overall workup today reassuring, probable pneumonia in setting of recent viral illness. Will treat with azithromycin and Augmentin While in the emergency department, Lowell received a duoneb for wheeze with good improvement of wheezing and mobilization of mucus. first dose of azithromycin and Augmentin given tonight. Please review patient's PCP records from [facility]. He was last seen by PCP on 06/02/2023. Obtained PMH from that visit. Reviewed discharge instructions with patient, including symptomatic management, importance of follow-up with PCP for reevaluation, and red flags indicating need for return to emergency care Related Data Home Medications ?Medication ?Instructions ?Recorded ?Confirmed lisinopril 5 mg tablet 5 mg PO DAILY 09/30/12 07/23/24 apple cider vinegar 600 mg capsule 600 mg PO DAILY 02/06/19 07/23/24 coenzyme Q10 100 mg capsule (Co 100 mg PO DAILY 02/06/19 07/23/24 Q-10) pravastatin 20 mg tablet 20 mg PO DAILY 02/06/19 07/23/24 vitamin B complex (B 1 tab PO DAILY 03/26/20 07/23/24 Complex-Vitamin B12 tablet) acetaminophen 500 mg capsule 1,000 mg (2 x 500 mg) PO Q8H PRN 04/01/22 07/23/24 PRN #15 caps albuterol sulfate 90 mcg/actuation 2 puff inhalation Q6H PRN 05/26/22 07/23/24 aerosol inhaler (ProAir HFA) omega 9-bol-ccp-fish oil 100 1 cap PO DAILY 05/26/22 07/23/24 mg-160 mg-1,000 mg capsule (Fish Oil) vitamin E mixed 400 unit capsule 1 unit PO DAILY 05/26/22 07/23/24 buspirone 15 mg tablet 15 mg PO BID 05/27/22 07/23/24 vitamin A 2,400 mcg capsule 2,400 mcg PO DAILY 05/27/22 07/23/24 zinc acetate 50 mg (zinc) capsule 50 mg PO DAILY 05/27/22 07/23/24 (Galzin) ascorbic acid (vitamin C) 500 mg 500 mg PO DAILY 06/15/22 07/23/24 tablet Amox. 875/Clav. 125, 2 tabs/bt 1 tab PO DISPENSE 4 days #8 tabs 07/23/24 [Augmentin 875-125, 2 tabs/btl] amoxicillin 875 mg-potassium 1 tab PO BID #8 tabs 07/23/24 clavulanate 125 mg tablet azithromycin 250 mg tablet 250 mg PO DAILY 4 days #4 tabs 07/23/24 Previous Rx's ?Medication ?Instructions ?Recorded acetaminophen 500 mg capsule 1,000 mg (2 x 500 mg) PO Q8H PRN 04/01/22 PRN #15 caps Amox. 875/Clav. 125, 2 tabs/bt 1 tab PO DISPENSE 4 days #8 tabs 07/23/24 [Augmentin 875-125, 2 tabs/btl] amoxicillin 875 mg-potassium 1 tab PO BID #8 tabs 07/23/24 clavulanate 125 mg tablet azithromycin 250 mg tablet 250 mg PO DAILY 4 days #4 tabs 07/23/24 Allergies Allergy/AdvReac Type Severity Reaction Status Date / Time rosuvastatin (From Crestor) Allergy Intermediate Skin Rash Verified 07/23/24 21:00 amlodipine AdvReac Intermediate angina Verified 07/23/24 21:00 atorvastatin AdvReac Intermediate vomiting Verified 07/23/24 21:00 morphine AdvReac Intermediate Nausea Verified 07/23/24 21:00 codeine (Codeine) AdvReac Mild Nausea, Verified 07/23/24 21:00 upset stomach General VON: 3 Review of Systems Narrative: see HPI Exam Const General: cooperative, comfortable and well developed Nutritional Appearance: average body habitus Orientation: alert and oriented x3 HENMT Head: normal to inspection Ears: hearing grossly normal bilaterally General nose exam: external nose normal Mouth: oral mucosae normal and moist mucous membranes Throat: posterior oropharynx normal Neck Neck: normal visual inspection and no lymphadenopathy Resp Effort & Inspection: normal respiratory effort, able to speak in complete sentences and cough Auscultation: wheezes Cardio Rate: regular rate Rhythm: regular rhythm Medical Decision Making Imaging Data Radiologic Study: Radiologist's impression: PROCEDURE INFORMATION: Exam: XR Chest Exam date and time: 07/23/2024 9:41 PM Age: 59 years old Clinical indication: Other: Cough, SOB R/O pna TECHNIQUE: Imaging protocol: Radiologic exam of the chest. Views: 2 views. COMPARISON: CR XR CHEST 2V PA LATERAL 02/07/2024 3:16 PM FINDINGS: Lungs: Faint upper lobe airspace opacity may represent developing pneumonia. Pleural spaces: Unremarkable. No pleural effusion. No pneumothorax. Heart/Mediastinum: No cardiomegaly or pericardial effusion. Bones/joints: No acute osseous abnormality. Soft tissues: Soft tissues are unremarkable as visualized. IMPRESSION: Faint upper lobe airspace opacity may represent developing pneumonia. Quality:SDOH Health Related Social Needs: No Data to Display PFSH All Active Problems (Updated 07/23/24 @ 22:35 by Shakira Davila) Upper respiratory virus (Acute) Community acquired pneumonia (Acute) Prostate cancer (Chronic) Diverticular disease of colon (Acute) Hearing loss, bilateral (Acute) Hemorrhoid (Acute) Seasonal allergies (Acute) CTS (carpal tunnel syndrome) (Acute) Elevated blood sugar (Acute) Prediabetes (Acute) Weight loss (Acute) Sensorineural hearing loss, bilateral (Acute) Blood in stool (Acute) Sensorineural hearing loss, unilateral (Acute 06/10/17) Rectal hemorrhage (Acute) Hemorrhoids with complication (Acute) Closed mallet fracture of distal phalanx of left little finger (Acute 05/26/21) Left carpal tunnel syndrome (Acute) s/p ECTR DOS: 04/01/22 Trigger finger, left little finger (Acute) Bilateral carpal tunnel syndrome (Acute) COVID (Acute) Medical History (Updated 07/23/24 @ 22:35 by Shakira Davila) Elevated PSA Low back pain Erectile dysfunction Hypertension Plantar fasciitis Irritability Hyperlipidemia Skin rash Anxiety Hearing loss Muscle pain Surgical History History of surgery ORIF left elbow. Hardware removed 2020 History of colonoscopy (~04/01/20) Colonoscopy - MAC (02/26/17) Family History Mother Colon cancer Grandfather Colon cancer Social History Smoking/Tobacco Use Status: Never Smoking risk assessment performed?: Yes Alcohol Intake: never Drug use: Never Substance use type: does not use Housing: house Current gender identity: male Do you feel safe at home: Yes Do you feel safe in your relationship?: Yes Additional Social history: lives alone
--- NOTE | 2024-07-23 21:15 | DI.RAD_ITS ---
Exam(s) XR CHEST 2V PA LATERAL EXAM: XR CHEST 2V PA LATERAL CLINICAL HISTORY: cough, SOB r/o PNA TECHNIQUE: 2D digital imaging was performed of the chest. Two images were obtained. PA and lateral views were obtained. COMPARISON: CR XR CHEST 2V PA LATERAL from 02/07/2024 FINDINGS: MEDIASTINUM: Normal. HEART: Normal. PULMONARY VASCULATURE: Normal. LUNGS: There is a question of an opacity developing in the right upper lobe. The left lung is clear. This is best appreciated on the PA view. PLEURAL SPACE: No pleural effusion or pneumothorax. BONE:Within normal limits for the patient's age. OTHER FINDINGS:Normal. IMPRESSION: Question of a developing right upper lobe infiltrate. This may represent pneumonia. Follow-up as cl inically appropriate. DATA REPOSITORY: RADIATION DOSE DELIVERED:
[2024-07-23 21:53] LABS: COVID-19 PCR Negative (Negative); Influenza A PCR Negative (Negative); Influenza B PCR Negative (Negative); RSV PCR Negative (Negative)
[2024-07-23 21:54] LABS: Source NASOPHARYNX
[2024-07-23 21:54] LABS: Abs Immature Grans 0.07 10^3/uL (0.0-0.06); Absolute Basophil Count 0.04 10^3/uL (0.0-0.2); Absolute Eosinophil Count 0.14 10^3/uL (0.0-0.7); Absolute Lymphocyte Count 2.21 10^3/uL (1.2-3.4); Absolute Monocyte Count 1.16 10^3/uL (0.1-0.8); Absolute Neutrophil Count 7.18 10^3/uL (1.2-6.7); Basophils % 0.4 %; Eosinophils % 1.3 %; HGB 15.2 g/dL (13.5-17.5); Immature Grans % 0.6 %; Lymphocytes % 20.5 %; MCH 32.5 pg (27.0-33.0); MCHC 34.5 % (32.0-36.0); MCV 94 fL (80-95); MPV 8.6 fL (8.0-11.0); Monocytes % 10.7 %; Neutrophils % 66.5 %; Platelet Count 360 10^3/uL (130-400); RBC 4.68 10^6/uL (4.36-5.78); RDW 11.7 % (11.8-14.1); RDW-SD 40.3 fL
[2024-07-23 22:03] LABS: Anion Gap 5.3 mmol/L (3-11); BUN 14 mg/dL (7-18); CO2 29.7 mmol/L (21.0-32.0); CREATININE 1.3 mg/dL (0.70-1.30); Calcium 10.1 mg/dL (8.5-10.1); Chloride 103 mmol/L (98-107); Estimated GFR 63.28 (mL/min/1.73m2); Glucose 112 mg/dL (74-106); Sodium 138 mmol/L (136-145)
[2024-07-23] MEDS: Albuterol/Ipratropium 3 ML UPD VIAL UPD (22:08)
--- NOTE | 2024-07-23 22:26 | DI.VRAD_ITS ---
PROCEDURE INFORMATION: Exam: XR Chest Exam date and time: 07/23/2024 9:41 PM Age: 59 years old Clinical indication: Other: Cough, SOB R/O pna TECHNIQUE: Imaging protocol: Radiologic exam of the chest. Views: 2 views. COMPARISON: CR XR CHEST 2V PA LATERAL 02/07/2024 3:16 PM FINDINGS: Lungs: Faint upper lobe airspace opacity may represent developing pneumonia. Pleural spaces: Unremarkable. No pleural effusion. No pneumothorax. Heart/Mediastinum: No cardiomegaly or pericardial effusion. Bones/joints: No acute osseous abnormality. Soft tissues: Soft tissues are unremarkable as visualized. IMPRESSION: Faint upper lobe airspace opacity may represent developing pneumonia. Dictated and Authenticated by: Daphne Sabillon MD. Ordering:YOUNG Rosenberg MD
[2024-07-23] MEDS: Amox. 875/Clav. 125, 2 TABS/BTL 1 TAB PO (22:41)
[2024-07-23] MEDS: Azithromycin 250 MG TAB 500 MG PO (22:41)
== END 2024-07-23 22:49 | disposition home or self-care (01) ==
PROVIDERS: Emergency Provider Nurse Practitioner Family; PCP Nurse Practitioner Family
DX: J18.9 Pneumonia, unspecified organism (principal); I10 Essential (primary) hypertension
CPT/HCPCS: 36415; 80048; 87637; 93005; 94640; 99284; 71046; 85025; 93010; J7620

== ENCOUNTER 2024-11-21 11:47 | Outpatient (REF) | payer BC, SELFPAY ==
[2024-11-21 14:26] LABS: COMMENT (LAB VIEW ONLY) 40.01 mg/dL; Microalb ug/mg Crea 9.7 ug/mg Cr
== END 2024-11-21 11:48 | disposition home or self-care (01) ==
LOC: NCHCN 11:47
PROVIDERS: PCP Nurse Practitioner Family; Visit Provider Nurse Practitioner Family
DX: I10 Essential (primary) hypertension (principal)
CPT/HCPCS: 82043; 82570